=== PATIENT | male | born 1955 | race African-American/Black ===

== ENCOUNTER 2018-06-20 10:20 | Inpatient (IN) ==
[2018-06-20] MEDS ORDERED: LORazepam 1 MG Tablet PO ONE (11:26)
--- NOTE | 2018-06-20 11:37 | ED ---
HPI General Chief Complaint: Psychiatric Symptoms Stated Complaint: Psych eval / DBPD Time Seen by Provider: 06/20/18 17:30 Source: patient and police Mode of arrival: other Limitations: no limitations History of Present Illness HPI Narrative: 62-year-old male with a history of alcohol abuse and polysubstance abuse presents to the emergency department as a Case act for suicidal ideations. Upon my questioning, he admits to homicidal ideations as well but does not wish to go into detail. He states that he is a [place] [employer] and has PTSD. He cannot tell me why his symptoms were exacerbated. He does admit to using cocaine and marijuana yesterday and drinking 4 beers this morning. He says that he was given medication here at [facility] but does not take this medication since he was discharged last month. He cannot tell me what medication this was. He has no other complaints today. He denies any other chronic medical problems except for allergic rhinitis. MD complaint: Reports suicidal ideation and feels depressed Onset (ago): month(s) (4-5) Duration: intermittent History of same: Yes Relieving factors: none Exacerbating factors: alcohol and drug use Context: Reports recent alcohol abuse, recent drug abuse and not taking psychiatric medications; Denies significant life stressor Associated psychiatric symptoms: Reports depression, suicidal ideation and homicidal ideation; Denies auditory hallucinations and visual hallucinations Associated symptoms: Reports denies other symptoms Treatments prior to arrival: Reports none If self harm: admits thoughts of self harm Related Data Previous Rx's Medication Instructions Recorded hydroxyzine HCl 50 mg PO Q8H PRN #30 tab 06/10/18 quetiapine 200 mg PO DAILY 30 Days #30 tab 06/10/18 quetiapine 400 mg PO HS 30 Days #60 tab 06/10/18 sertraline [Zoloft] 100 mg PO DAILY 30 Days #30 tab 06/10/18 Allergies Allergy/AdvReac Type Severity Reaction Status Date / Time naproxen Allergy Severe Itching Verified 06/03/18 21:06 Review of Systems ROS: all other systems reviewed are negative [facility] Medical History Medical History PTSD (post-traumatic stress disorder) (Acute) Herniated cervical disc (Acute) Herniated lumbar intervertebral disc (Acute) Social History Social History Substance History: Active Abuse Second Hand Smoke Exposure: Yes Smoking Status: Current every day smoker Tobacco Type: Cigarettes How Often Do You Have a Drink Containing Alcohol: Monthly or less Recent Travel in [place] within the Last 8 Weeks: No Recent Out of Country Travel within the Last 8 Weeks: No Substance Abuse Detail Crack/Cocaine: Substance Use Status: Active Route Used Substance Abuse: Inhalation Reason for Use: Calm Down Immunization History Tetanus Immunization: >5 Years Exam Narrative Exam Narrative: GENERAL: WD, WN in NAD SKIN: Focused skin assessment warm/dry. HEAD: Atraumatic. Normocephalic. EYES: Pupils equal and round. No scleral icterus. No injection or drainage. ENT: No nasal bleeding or discharge. Mucous membranes pink and moist. No tonsillar hypertrophy or exudate. NECK: Trachea midline. No JVD. No meningismus. No midline tenderness. CARDIOVASCULAR: Regular rate and rhythm. No murmur appreciated. RESPIRATORY: No accessory muscle use. Clear to auscultation. Breath sounds equal bilaterally. GASTROINTESTINAL: Abdomen soft, non-tender, nondistended. No CVAT. MUSCULOSKELETAL: No obvious deformities. No clubbing. No cyanosis. No edema. No tenderness to palpation of the calves. Sensation intact to bilateral lower extremities. NEUROLOGICAL: Awake and alert. No obvious cranial nerve deficits. Motor grossly within normal limits. Normal speech. Psych Appearance: grossly normal Mental Status: mental status grossly normal Speech and Movement: slowed movement Mood: anxious mood and irritable mood Affect: blunted Attitude: cooperative Thought Process: circumstantial Thought Content: homicidality and suicidality Judgment: limited Course Initial Documented Vital Signs Temperature 97.8 F 06/20/18 10:55 Pulse Rate 82 06/20/18 10:55 Respiratory Rate 17 06/20/18 10:55 Blood Pressure 157/81 H 06/20/18 10:55 Pulse Oximetry 100 06/20/18 10:55 Last Documented Vital Signs Temperature 98.2 F 06/21/18 05:47 Pulse Rate 75 06/21/18 05:47 Respiratory Rate 16 06/21/18 05:47 Blood Pressure 147/82 H 06/21/18 05:47 Pulse Oximetry 92 L 06/21/18 05:47 Medical Decision Making MDM Narrative Medical decision making narrative: 62-year-old male presents to the emergency department for evaluation under Case act for suicidal ideations. He admits to drinking 4 beers today and using marijuana and cocaine yesterday. He says that he was discharged with medication at his last visit here at [facility] but does not recall what medication this was. He reports feeling very anxious at this time. Vital signs are stable. Labs ordered for evaluation. He appears well and polite. He does appear anxious. I offer this patient Ativan to help him calm and allow him to sleep as he does admit to significant insomnia as well. Labs appear stable. Consistent with patient's history of cocaine use and recent alcohol use this morning. He is medically to see psych. Medical Screen Exam Complete: Yes Emergency Medical Condition: Yes Differential Diagnosis Differential Diagnosis: Medical clearance for psych evaluation, psychosis, depression, malingering, substance abuse, substance induced mood disorder, anxiety, adjustment disorder, intoxication, anxiety, suicidal ideations Lab Data Result diagrams: 06/20/18 11:00 06/20/18 11:00 Lab Results 06/20/18 06/20/18 06/20/18 Range/Units 11:00 11:00 11:00 WBC 10.2 (4.0-11.0) th/mm3 RBC 4.81 (4.50-5.90) mil/mm3 Hgb 13.9 (13.0-17.0) gm/dL Hct 40.1 (39.0-51.0) % MCV 83.4 (80.0-100.0) fL MCH 28.9 (27.0-34.0) pg MCHC 34.6 (32.0-36.0) % RDW 14.6 (11.6-17.2) % Plt Count 257 (150-450) th/mm3 MPV 8.3 (7.0-11.0) fL Neut % (Auto) 69.5 (16.0-70.0) % Lymph % (Auto) 19.3 (9.0-44.0) % Graves % (Auto) 7.6 (0.0-8.0) % Eos % (Auto) 3.1 (0.0-4.0) % Baso % (Auto) 0.5 (0.0-2.0) % Neut # (Auto) 7.1 (1.8-7.7) th/mm3 Lymph # (Auto) 2.0 (1.0-4.8) th/mm3 Graves # (Auto) 0.8 (0.0-0.9) th/mm3 Eos # (Auto) 0.3 (0.0-0.4) th/mm3 Baso # (Auto) 0.1 (0.0-0.2) th/mm3 WBC Differential . Differential Comment Auto diff final Sodium 138 (136-145) meq/L Potassium 4.0 (3.5-5.1) meq/L Chloride 104 (98-107) meq/L Carbon Dioxide 23.8 (21.0-32.0) meq/L Anion Gap 10 (5-15) meq/L BUN 11 (7-18) mg/dL Creatinine 1.11 (0.60-1.30) mg/dL Estimated GFR 81 L (>89) mL/min Random Glucose 77 (74-106) mg/dL Calcium 9.1 (8.5-10.1) mg/dL Magnesium 2.3 (1.5-2.5) mg/dL Total Bilirubin 0.4 (0.2-1.0) mg/dL AST 25 (15-37) U/L ALT 27 (12-78) U/L Alkaline Phosphatase 109 (45-117) U/L Total Protein 8.2 (6.4-8.2) g/dL Albumin 3.9 (3.4-5.0) g/dL TSH 0.715 (0.358-3.740) uIU/mL Urine Opiates Screen Neg (Neg) Ur Barbiturates Screen Neg (Neg) Ur Amphetamines Screen Neg (Neg) U Benzodiazepines Scrn Neg (Neg) Urine Cocaine Screen Pos H (Neg) U Cannabinoids Screen Neg (Neg) Serum Alcohol 61 H (0-5) mg/dL Discharge Plan Discharge Disposition Patient Disposition: Sign Out(ED Internal Use Only) Discharge Condition Condition: Stable Discharge Order Discharge Orders: ED Use Only Admit Order (Routine); Ordered 06/20/18 Ordered By: Dheeraj Hernandez Discharge Details Diagnosis: Cocaine abuse, Alcohol abuse, Suicidal ideation Physicians Team ED Provider: Edin Rivas ED Midlevel Provider: Amy Schwarz Primary Care Provider: [facility],Physician 's Attending Provider: Kevin Spence Status ED Status: Left Department Discharge Information Discharge Date/Time: 06/20/18 20:45
[2018-06-20 12:24] LABS: Baso # (Auto) 0.1 th/mm3 (0.0-0.2); Baso % (Auto) 0.5 % (0.0-2.0); Eos # (Auto) 0.3 th/mm3 (0.0-0.4); Eos % (Auto) 3.1 % (0.0-4.0); Hematocrit 40.1 % (39.0-51.0); Hemoglobin 13.9 gm/dL (13.0-17.0); Lymph % (Auto) 19.3 % (9.0-44.0); Mean Corpuscular HGB Conc 34.6 % (32.0-36.0); Mean Corpuscular Hemoglobin 28.9 pg (27.0-34.0); Mean Corpuscular Volume 83.4 fL (80.0-100.0); Mean Platelet Volume 8.3 fL (7.0-11.0); Mono # (Auto) 0.8 th/mm3 (0.0-0.9); Mono % (Auto) 7.6 % (0.0-8.0); Neut # (Auto) 7.1 th/mm3 (1.8-7.7); Neut % (Auto) 69.5 % (16.0-70.0); Platelet Count 257 th/mm3 (150-450); Red Blood Count 4.81 mil/mm3 (4.50-5.90); Red Cell Distribution Width 14.6 % (11.6-17.2); White Blood Count 10.2 th/mm3 (4.0-11.0)
[2018-06-20 12:35] LABS: Amphetamine Screen,Urine Neg (Neg); Barbiturate Screen,Urine Neg (Neg); Cannabinoid Screen,Urine Neg (Neg); Cocaine Screen,Urine Pos (Neg)
[2018-06-20 12:48] LABS: Albumin 3.9 g/dL (3.4-5.0); Anion Gap 10 meq/L (5-15); Aspartate Aminotransferase 25 U/L (15-37); Blood Urea Nitrogen 11 mg/dL (7-18); Calcium 9.1 mg/dL (8.5-10.1); Carbon Dioxide 23.8 meq/L (21.0-32.0); Chloride 104 meq/L (98-107); Glomerular Filtration Rate 81 mL/min (>89); Glucose,Random 77 mg/dL (74-106); Magnesium 2.3 mg/dL (1.5-2.5); Sodium 138 meq/L (136-145)
[2018-06-20 12:49] LABS: Alanine Aminotransferase 27 U/L (12-78)
[2018-06-20 12:51] LABS: Opiate Screen,Urine Neg (Neg)
[2018-06-20 12:52] LABS: Alcohol 61 mg/dL (0-5)
[2018-06-20 12:59] LABS: Alkaline Phosphatase 109 U/L (45-117); Thyroid Stimulating Hormone 0.715 uIU/mL (0.358-3.740); Total Protein 8.2 g/dL (6.4-8.2)
[2018-06-20] MEDS ORDERED: Aluminum/Magnesium/Simethacone Susp 30 ML UDC PO PRN (18:46)
[2018-06-20] MEDS ORDERED: Sertraline 100 MG Tablet PO ONE (18:52)
--- NOTE | 2018-06-20 18:53 | ED ---
HPI - Psych - General Source: patient, police Mode of arrival: other Limitations: no limitations - History of Present Illness MD complaint: suicidal ideation, feels depressed Onset (ago): hour(s) Duration: intermittent Relieving factors: none Exacerbating factors: alcohol, drug use Context: recent alcohol abuse, recent drug abuse, not taking psychiatric medications Associated psychiatric symptoms: depression, suicidal ideation, auditory hallucinations Associated symptoms: denies other symptoms Treatments prior to arrival: none If self harm: admits thoughts of self harm - General Chief Complaint: Psychiatric Symptoms Stated Complaint: Psych eval / DBPD Time Seen by Provider: 06/20/18 17:30 - History of Present Illness HPI Narrative: Patient is a 62 years old -[place] male who is a [place] and is well-known to this to this ED and he was recently treated inpatient in May 2018. The patient was brought to this ED by law enforcement officers after patient reported suicidal thoughts and making threats to jump off a bridge or to shoot himself with a gun. The patient was assessed in his room and he appears anxious and depressed. Patient speech is fluent and rational unable to give a clear and accurate account of recent events leading up to him being Case acted by the police. He reported frequent traumatic flashback memories of the [place] War that triggers suicidal thoughts. He admits to be drinking alcohol, snorting cocaine and smoking marijuana frequently and that he stopped taking his psychotropic medication about 3 weeks ago. Patient admits to auditory hallucinations and he has a history of poor compliance with medications. She did not is unable to verify family support and he does not access resources for help at the [facility] recently. Patient denies chest pain abdominal pain or any other medical complaints. (Dheeraj Hernandez) - Related Data Previous Rx's Medication Instructions Recorded hydroxyzine HCl 50 mg PO Q8H PRN #30 tab 06/10/18 quetiapine 200 mg PO DAILY 30 Days #30 tab 06/10/18 quetiapine 400 mg PO HS 30 Days #60 tab 06/10/18 sertraline [Zoloft] 100 mg PO DAILY 30 Days #30 tab 06/10/18 Allergies Allergy/AdvReac Type Severity Reaction Status Date / Time naproxen Allergy Severe Itching Verified 06/03/18 21:06 PMF - History History Provided By: Patient - Medical History Medical History: Medical History (Last Updated 02/11/19 @ 11:22 by Claudia Pop PTSD (post-traumatic stress disorder) Herniated cervical disc Herniated lumbar intervertebral disc - Tobacco History Second Hand Smoke Exposure: Yes Tobacco Use In Past 30 Days: Yes Smoking Status: Current every day smoker Tobacco Type: Cigarettes - Alcohol History How Often Do You Have a Drink Containing Alcohol: Monthly or less - Substance Use History Substance History: Active Abuse - Substance Use Type Crack/Cocaine Status: Active Route Used: Inhalation Reason for Use: Calm Down - Travel History Recent Travel in the [place] Within the Last 8 Weeks: No Recent Travel Out of the Country Within the Last 8 Weeks: No - Immunization History Tetanus Immunization: >5 Years Psychiatric History - Psychiatric History Psychiatric Treatment History: History of Psychiatric Treatment, History of Hospitalization in a Psychiatric Facility, History of Community Mental Health Treatment History of Inpatient Treatment: Yes Firearms in Home: No - Psychiatric History Patient reported history of PTSD and depression dated as far back as 20 years and that he has been treated by the [facility] for these disorder over the years. Patient has been seen multiple times in this ED and he also was admitted to the inpatient units the last time was June 01, 2018 (Dheeraj Hernandez) Physical Exam - General Limitations: no limitations Mental Status Examination Consciousness: Alert, Vigilant, Highly distractible Orientation: x4 Motor Activity: Normal gait Speech: Unremarkable Language: Adequate Fund of Knowledge: Adequate Attention and Concentration: Adequate, Easily distracted Memory: Unremarkable Mood: Sad, Anxious, Irritable Affect: Irritable, Sad, Anxious Thought Process & Associations: Logical, Tangential Thought Content: Hallucinations, Racing thoughts Hallucination Type: Auditory Delusion Type: None Suicidal Ideation: Yes Suicidal Plan: Yes Suicidal Intention: No Homicidal Ideation: No Homicidal Plan: No Homicidal Intention: No Insight: Fair Judgment: Impulsive Initial Documented Vital Signs Temperature 97.8 F 06/20/18 10:55 Pulse Rate 82 06/20/18 10:55 Respiratory Rate 17 06/20/18 10:55 Blood Pressure 157/81 H 06/20/18 10:55 Pulse Oximetry 100 06/20/18 10:55 Last Documented Vital Signs Temperature 98.5 F 06/20/18 18:01 Pulse Rate 99 H 06/20/18 18:01 Respiratory Rate 18 06/20/18 18:01 Blood Pressure 127/74 06/20/18 18:01 Pulse Oximetry 99 06/20/18 18:01 MDM - Psych - Diagnosis (1) Cocaine abuse Code(s): F14.10 - Cocaine abuse, uncomplicated Status: Acute (2) Alcohol abuse Code(s): F10.10 - Alcohol abuse, uncomplicated Status: Acute (3) Suicidal ideation Code(s): R45.851 - Suicidal ideations Status: Acute - Lab Data Result diagrams: 06/20/18 11:00 06/20/18 11:00 - [facility] Narrative Medical decision making narrative: Patient continues to complain of flashback memories of the [place] War that taunts him continuously. He explained that the voices in his head is commanding him to do self-harm and that he is tired of living like that. Patient confirms frequent nightmares that prevents him from sleeping. Despite his frequent suicidal thoughts no self-harm gestures are present. No psychomotor agitation or behavioral disturbances displayed by the patient. No alcohol withdrawal symptoms are present. The patient is advocating inpatient stabilization of his psychotic and PTSD states. Patient denies chest pain or any somatic symptoms. He emphasized that he cannot trust himself with these suicidal thoughts and traumatic flashback memories. The plan is to continue the Case Act and admit patient to the 2700 unit for close observation and stabilization of his PTSD and psychotic symptoms. (Dheeraj Hernandez) - Lab Data Lab Results 06/20/18 06/20/18 06/20/18 Range/Units 11:00 11:00 11:00 WBC 10.2 (4.0-11.0) th/mm3 RBC 4.81 (4.50-5.90) mil/mm3 Hgb 13.9 (13.0-17.0) gm/dL Hct 40.1 (39.0-51.0) % MCV 83.4 (80.0-100.0) fL MCH 28.9 (27.0-34.0) pg MCHC 34.6 (32.0-36.0) % RDW 14.6 (11.6-17.2) % Plt Count 257 (150-450) th/mm3 MPV 8.3 (7.0-11.0) fL Neut % (Auto) 69.5 (16.0-70.0) % Lymph % (Auto) 19.3 (9.0-44.0) % [place]ett % (Auto) 7.6 (0.0-8.0) % Eos % (Auto) 3.1 (0.0-4.0) % Baso % (Auto) 0.5 (0.0-2.0) % Neut # (Auto) 7.1 (1.8-7.7) th/mm3 Lymph # (Auto) 2.0 (1.0-4.8) th/mm3 [place]ett # (Auto) 0.8 (0.0-0.9) th/mm3 Eos # (Auto) 0.3 (0.0-0.4) th/mm3 Baso # (Auto) 0.1 (0.0-0.2) th/mm3 WBC Differential . Differential Comment Auto diff final Sodium 138 (136-145) meq/L Potassium 4.0 (3.5-5.1) meq/L Chloride 104 (98-107) meq/L Carbon Dioxide 23.8 (21.0-32.0) meq/L Anion Gap 10 (5-15) meq/L BUN 11 (7-18) mg/dL Creatinine 1.11 (0.60-1.30) mg/dL Estimated GFR 81 L (>89) mL/min Random Glucose 77 (74-106) mg/dL Calcium 9.1 (8.5-10.1) mg/dL Magnesium 2.3 (1.5-2.5) mg/dL Total Bilirubin 0.4 (0.2-1.0) mg/dL AST 25 (15-37) U/L ALT 27 (12-78) U/L Alkaline Phosphatase 109 (45-117) U/L Total Protein 8.2 (6.4-8.2) g/dL Albumin 3.9 (3.4-5.0) g/dL TSH 0.715 (0.358-3.740) uIU/mL Urine Opiates Screen Neg (Neg) Ur Barbiturates Screen Neg (Neg) Ur Amphetamines Screen Neg (Neg) U Benzodiazepines Scrn Neg (Neg) Urine Cocaine Screen Pos H (Neg) U Cannabinoids Screen Neg (Neg) Serum Alcohol 61 H (0-5) mg/dL
--- NOTE | 2018-06-21 12:36 | P.HPPSY ---
Provisional Diagnosis Admission Date: June 20, 2018 18:43 Gilbert I.: Major depressive disorder recurrent severe with psychotic features Anxiety disorder unspecified Cocaine use disorder Alcohol use disorder Competence Certification of Person's Competence To Provide Express and Informed Consent I have personally examined Jin Sheriff JR, a person being served at [facility] on, June 21, 2018 1235. Express and informed consent means consent voluntarily given in writing, by a competent person, after sufficient explanation and disclosure of the subject matter involved to enable the person to make a knowing and willful decision without any element of force, fraud, deceit, duress, or other form of constraint or coercion. This person is 18 years of age or older, is not now known to be incompetent to consent to treatment with a guardian advocate, and does not have a health care surrogate or proxy currently making medical treatment decisions. I have found this person to be one of the following: [xxx] Competent to provide express and informed consent, as defined above, for voluntary admission to this facility and is competent to provide express and informed consent for treatment. He/she has the consistent capacity to make well reasoned, willful, and knowing decisions concerning his or her medical or mental health treatment. The person fully and consistently understands the purpose of the admission for examination/placement and is fully capable of personally exercising all rights assured under [place] Incompetent to provide express and informed consent to voluntary admission, and this is incompetent to provide express and informed consent to treatment. The person must be transferred to involuntary status and a petition for a guardian advocate filed with the Circuit Court. [] Refusing to provide express and informed consent to voluntary admission but is competent to provide express and informed consent for treatment. The person must be discharged or transferred to involuntary status. Form shall be completed within 24 hours of a person's arrival at the receiving facility and filed in the clinical record of each person: 1. Admitted on a voluntary basis 2. Permitted to provide express and informed consent to his/her own treatment 3. Allowed to transfer from involuntary to voluntary status 4. Prior to permitting a person to consent to his or her own treatment after having been previously found incompetent to consent to treatment. History of Present Illness Capacity: Has capacity Chief Complaint: Suicidal thoughts History of Present Illness: Patient is a 62 years old -Maldivian male and is well-known to this to this ED and he was recently treated inpatient in May 2018. The patient was brought to this ED by law enforcement officers after patient reported suicidal thoughts and making threats to jump off a bridge or to shoot himself with a gun. The patient was assessed in his room and he appears anxious and depressed. Patient speech is fluent and rational unable to give a clear and accurate account of recent events leading up to him being Case acted by the police. He reported frequent traumatic flashback memories of the [place] that triggers suicidal thoughts. He admits to be drinking alcohol, snorting cocaine and smoking marijuana frequently and that he stopped taking his psychotropic medication about 3 weeks ago. Patient admits to auditory hallucinations and he has a history of poor compliance with medications. The patient is advocating inpatient stabilization of his psychotic and PTSD states. Patient denies chest pain or any somatic symptoms. He emphasized that he cannot trust himself with these suicidal thoughts and traumatic flashback memories. Patient was seen at bedside on the psychiatric unit this morning where he was still asleep after waking up briefly for breakfast. The patient complains of fatigue and somnolence as well as severe depressive mood but denies active suicidal thoughts or plans at this time. He admits to nonadherence with discharge medications and discharge follow-up plans from previous admission and he attributes it to worsening flashbacks from combat trauma from [place]. The patient's date in 1955 would indicate that he is too young to have served in the [place] conflict but this inconsistency will be challenged at a later date. The patient's presentation of worsening depression fatigue and anhedonia and auditory hallucinations telling to hurt himself are most consistent with recurrence of his depression in the context of continued cocaine abuse. Patient had done well on previous inpatient treatments after discussion of risk benefits side effects alternatives he chooses to restart his previous psychotropics. Past psychiatric history: Past Diagnoses: The patient cannot recall past diagnoses Hospitalizations: Patient was discharged from [facility] on 10 June 2018. The patient reports he was hospitalized at [facility] 4 years ago after a suicide attempt. Suicidal behavior: Patient admits that he tried to stab himself 4 years ago and suicide attempt Past psychotropic medication trials: Patient can only recall treatment with Seroquel 100 mg at bedtime but reports that that dose was inadequate to help him sleep or to control his voices. During his admission last month the patient was restarted on Seroquel and the dose titrated up to 200 mg in the morning and 400 mg at bedtime with good effect. He was also started on Zoloft and titrate up to 100 mg a day for treatment of anxiety and depression. Outpatient MH treatment: Patient reports that he was followed by the [facility] outpatient clinic approximately 4 years ago but has not been back for 3 years. 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 Family psychiatric history: Denies Psychosocial history: Patient was born and raised locally and graduated high school but no college. He reports joining the [employer] after high school and served 3 years then got out with an honorable discharge. 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 Patient reports he was and x1 and has 4 children oldest being 30 years of age and the youngest being 3 years of age. His 3-year-old was with an ex-girlfriend who he has not been worse for the last 3 years and he has not seen his son since the son was 8 months old. Patient admits that he has been "hunting for them" but has not been able to find them. Patient reports that he has been homeless since his discharge earlier this month. Substance Use history: Tobacco use: Patient is a former smoker but none in the last few years Alcohol use: Patient denies regular alcohol use and none in the last few years Cannabis use: Denies Stimulant use: The patient denies regular use of cocaine but admits to using for the first time in over 8 months just days before his previous admission and now presents with a urine drug screen positive for cocaine again. Opiate use: Denies Prescription drug abuse: Denies - Inpatient Certification I certify that the inpatient services were ordered in accordance with Medicare regulations governing the order. This includes certification that hospital inpatient services are reasonable and necessary and in the case of services not specified as inpatient-only under 42 CFR 419.22(n), that they are appropriately provided as inpatient services in accordance to with the 2-midnight benchmark under 43 CFR 412.3(e) I certify that inpatient psychiatric hospital services are medically necessary. Evaluation and treatment and/or diagnostic testing are expected to improve the patient's condition. The patient needs on a daily basis, active treatment furnished directly by or requiring the supervision of inpatient psychiatric facility personnel. Estimated Total Length of Stay (Days): 7 Plans for Post Hospital Care: Home Review of Systems Ears, Nose, Mouth, and Throat: Reports nasal congestion Gastrointestinal: Reports heartburn PMFSH - History History Provided By: Patient - Medical History Medical History: Medical History (Last Updated 06/20/18 @ 11:22 by Claudia Rojas) PTSD (post-traumatic stress disorder) Herniated cervical disc Herniated lumbar intervertebral disc - Tobacco History Second Hand Smoke Exposure: Yes Tobacco Use In Past 30 Days: Yes Smoking Status: Current every day smoker Tobacco Type: Cigarettes - Alcohol History How Often Do You Have a Drink Containing Alcohol: Monthly or less - Substance Use History Substance History: Active Abuse - Substance Use Type Crack/Cocaine Status: Active Route Used: Inhalation Reason for Use: Calm Down - Travel History Recent Travel in the [place] Within the Last 8 Weeks: No Recent Travel Out of the Country Within the Last 8 Weeks: No - Immunization History Tetanus Immunization: >5 Years Hx Influenza Vaccine This Season: No Medications and Allergies Active Medications: Active Medications Al Hydrox/Mg Hydrox/Simethicone (Mag-Al Plus Susp Liq) 30 ml PO Q6H PRN PRN Reason: DYSPEPSIA Famotidine (Pepcid) 20 mg PO BID EMMA Fluticasone Propionate (Flonase Nasal [place]) 1 spray NASAL BID EMMA Hydroxyzine HCl (Atarax) 50 mg PO Q8H PRN PRN Reason: ANXIETY Lactulose (Lactulose Liq) 30 ml PO DAILY PRN PRN Reason: SEVERE CONSITIPATION Quetiapine Fumarate (Seroquel) 400 mg PO HS EMMA Quetiapine Fumarate (Seroquel) 200 mg PO DAILY EMMA Sertraline HCl (Zoloft) 100 mg PO DAILY EMMA Allergies Allergy/AdvReac Type Severity Reaction Status Date / Time naproxen Allergy Severe Itching Verified 06/03/18 21:06 Results - Labs CBC & Chem 7: 06/20/18 11:00 06/20/18 11:00 Labs: Laboratory Results - last 24 hr 06/20/18 06/20/18 11:00 11:00 Sodium 138 Potassium 4.0 Chloride 104 Carbon Dioxide 23.8 Anion Gap 10 BUN 11 Creatinine 1.11 Estimated GFR 81 L Random Glucose 77 Calcium 9.1 Magnesium 2.3 Total Bilirubin 0.4 AST 25 ALT 27 Alkaline Phosphatase 109 Total Protein 8.2 Albumin 3.9 TSH 0.715 Urine Opiates Screen Neg Ur Barbiturates Screen Neg Ur Amphetamines Screen Neg U Benzodiazepines Scrn Neg Urine Cocaine Screen Pos H U Cannabinoids Screen Neg Serum Alcohol 61 H Exam Vital signs: Vital Signs 06/20/18 12:49 06/20/18 18:01 06/20/18 21:22 Temperature 98.2 F 98.5 F 97.8 F Pulse Rate 89 99 H 95 H Respiratory Rate 18 18 18 Blood Pressure 152/81 H 127/74 174/81 H Pulse Oximetry 97 99 93 L 06/21/18 05:47 Temperature 98.2 F Pulse Rate 75 Respiratory Rate 16 Blood Pressure 147/82 H Pulse Oximetry 92 L Intake & Output 06/20/18 06/21/18 06/21/18 18:59 06:59 18:59 Weight 114.305 kg 79.9 kg Other: Weight On Admission 79.9 kg Mental Status Examination Appearance: Appropriate Consciousness: Alert, Somnolent Orientation: x4 Motor Activity: Normal gait Speech: Unremarkable Language: Adequate Fund of Knowledge: Adequate Attention and Concentration: Easily distracted Memory: Unremarkable Mood: Sad, Anxious Affect: Sad, Anxious Thought Process & Associations: Intact, Logical, Goal directed Thought Content: Appropriate Hallucination Type: Auditory (None elicited today but he complained of command hallucinations on admission to the ER) Delusion Type: None Suicidal Ideation: Yes (Passive) Suicidal Intention: No Homicidal Ideation: No Homicidal Plan: No Homicidal Intention: No Insight: Fair Judgment: Impulsive Assessment and Plan - Assessment (1) Major depressive disorder, recurrent, severe with psychotic features Code(s): F33.3 - Major depressive disorder, recurrent, severe with psychotic symptoms Status: Acute (2) Cocaine abuse Code(s): F14.10 - Cocaine abuse, uncomplicated Status: Acute (3) Alcohol abuse Code(s): F10.10 - Alcohol abuse, uncomplicated Status: Suspected (4) Suicidal ideation Code(s): R45.851 - Suicidal ideations Status: Acute - Plan Plan: 1. Continue with admission to inpatient psychiatry at [facility]; convert to voluntary/competent legal status. 2. Routine unit precautions. 3. Comfort medications ordered for as needed treatment of constipation, heartburn, diarrhea, and mild pain. 4. Hydroxyzine 50mg po q6H prn anxiety/insomnia. 5. Restart Seroquel 200 mg every morning and 400 mg at bedtime. 6. Restart Zoloft 100 mg every morning for treatment of anxiety and depression. 7. Restart Flonase 1 puff per nares twice a day. 8. Start famotidine 20 mg twice a day for reflux. 8. Patient will participate in the unit programming to include group therapies , milieu therapy and recreational therapies. 9. Discharge planning: The patient has access to [place] outpatient as well as inpatient treatments but he has thus far been nonadherent and when approached about the possibility of residential substance use treatment with the [place] he is currently reporting very little motivation. Patient is homeless which places him at continued risk of relapse on cocaine use therefore efforts will be made by his treatment team to get him into a prison as well as substance use recovery treatment. Estimated LOS: 7 days Justification for Continued Inpatient Stay: The patient is a 62-year-old who presents complaining of worsening depression with auditory hallucinations that are commanding him to harm himself. He had just been discharged approximately 12 days prior to this admission but he admits to nonadherence with the discharge medications or discharge treatment plan. He reports severe psychosocial stressors from continued homelessness as well as exacerbations of flashbacks of PTSD triggered a return of suicidal ideations with plan to jump from a bridge. Patient's mental status and mood were likely also affected by his continued cocaine abuse but the patient minimizes this habit and at this time he is declining recommendation for residential treatment for cocaine abuse. The patient's complaints of PTSD from combat in [place] is inconsistent with historical facts and the patient's age but it is possible that he does suffer from PTSD from another traumatic source therefore we will not confront or invalidate his suffering at this time but rather, provide treatments that will benefit his mood and anxiety and psychosis.
[2018-06-21] MEDS: Famotidine 20 MG Tablet PO SCH (21:38)
[2018-06-22] MEDS: Famotidine 20 MG Tablet PO SCH ×2 (08:56→20:39)
[2018-06-22] MEDS: Sertraline 100 MG Tablet PO SCH (08:56)
--- NOTE | 2018-06-22 12:54 | P.PNPSY ---
Subjective Chief Complaint: Suicidal thoughts Remarks: Patient seen for follow-up, chart reviewed, patient discussed with nursing staff ; we reviewed the patient's mood, thoughts, and behaviors from overnight and this morning. Nurse reports that patient slept approximately 8 hours overnight and he has been cooperative and pleasant with staff. The patient did complain of continued somnolence and would like to spend more time in bed but with encouragement from nursing he agreed to join the milieu and attend groups today. Patient was seen sitting quietly in the day room after breakfast. He complains of anxiety and paranoia triggered by sitting in the day room with other patients and he agrees to alert staff if it becomes overwhelming. Patient reports that he continues to have intermittent thoughts of suicide and he is fearful that if he was discharged at this time that he would follow through with those thoughts. He reports continued auditory hallucinations telling him that he should kill himself but denies any command hallucinations to harm others and he feels in control of those command hallucinations to harm himself and will alert staff if the intensity worsens. Review of Systems Musculoskeletal: Reports back pain Mental Status Examination Appearance: Appropriate Consciousness: Alert Orientation: x4 Motor Activity: Normal gait Speech: Unremarkable Language: Adequate Fund of Knowledge: Adequate Attention and Concentration: Easily distracted Memory: Unremarkable Mood: Sad, Anxious Affect: Sad, Anxious Thought Process & Associations: Intact, Logical, Goal directed Thought Content: Appropriate Hallucination Type: Auditory (None elicited today but he complained of command hallucinations on admission to the ER) Delusion Type: None Suicidal Ideation: Yes (Passive) Suicidal Plan: No Suicidal Intention: No Homicidal Ideation: No Homicidal Plan: No Homicidal Intention: No Insight: Fair Judgment: Impulsive Assessment and Plan - Assessment (1) Major depressive disorder, recurrent, severe with psychotic features Code(s): F33.3 - Major depressive disorder, recurrent, severe with psychotic symptoms Status: Acute (2) Cocaine abuse Code(s): F14.10 - Cocaine abuse, uncomplicated Status: Acute (3) Alcohol abuse Code(s): F10.10 - Alcohol abuse, uncomplicated Status: Suspected (4) Suicidal ideation Code(s): R45.851 - Suicidal ideations Status: Acute - Plan Plan: June 21, 2018. Initial assessment and plan: The patient is a 62-year-old who presents complaining of worsening depression with auditory hallucinations that are commanding him to harm himself. He had just been discharged approximately 12 days prior to this admission but he admits to nonadherence with the discharge medications or discharge treatment plan. He reports severe psychosocial stressors from continued homelessness as well as exacerbations of flashbacks of PTSD triggered a return of suicidal ideations with plan to jump from a bridge. Patient's mental status and mood were likely also affected by his continued cocaine abuse but the patient minimizes this habit and at this time he is declining recommendation for residential treatment for cocaine abuse. The patient's complaints of PTSD from combat in [place] is inconsistent with historical facts and the patient's age but it is possible that he does suffer from PTSD from another traumatic source therefore we will not confront or invalidate his suffering at this time but rather, provide treatments that will benefit his mood and anxiety and psychosis. 1. Continue with admission to inpatient psychiatry at [facility]; convert to voluntary/competent legal status. 2. Routine unit precautions. 3. Comfort medications ordered for as needed treatment of constipation, heartburn, diarrhea, and mild pain. 4. Hydroxyzine 50mg po q6H prn anxiety/insomnia. 5. Restart Seroquel 200 mg every morning and 400 mg at bedtime. 6. Restart Zoloft 100 mg every morning for treatment of anxiety and depression. 7. Restart Flonase 1 puff per nares twice a day. 8. Start famotidine 20 mg twice a day for reflux. 8. Patient will participate in the unit programming to include group therapies , milieu therapy and recreational therapies. 9. Discharge planning: The patient has access to [place] outpatient as well as inpatient treatments but he has thus far been nonadherent and when approached about the possibility of residential substance use treatment with the [place] he is currently reporting very little motivation. Patient is homeless which places him at continued risk of relapse on cocaine use therefore efforts will be made by his treatment team to get him into a custodial as well as substance use recovery treatment. Estimated LOS: 7 days June 22, 2018: Fair initial response to treatment, the patient reports feeling safe on the unit and is cooperative with care but he continues to experience command hallucinations with thoughts of harming himself. Continue inpatient psychiatric treatment and stabilization, voluntary status. Continue current medications unchanged as he will require more time on these medications in order to reach a therapeutic response. Discharge planning: The patient's homelessness is a prominent risk factor for his suicidal thoughts and behaviors and will need to be mitigated prior to discharge. Patient does have veterans benefits and the treatment team will try to access care and case management through the [facility] if possible. Justification for Continued Inpatient Stay: Patient remains an elevated risk for self-harm by acting out on his command hallucinations and will require further inpatient stabilization and preparation of a safe discharge plan. Moving patient to a less restrictive environment at this time may result in decompensation.
[2018-06-23] MEDS: Sertraline 100 MG Tablet PO SCH (08:19)
[2018-06-23] MEDS: Famotidine 20 MG Tablet PO SCH ×2 (08:19→21:31)
--- NOTE | 2018-06-23 13:23 | P.PNPSY ---
Subjective Chief Complaint: Suicidal thoughts Remarks: Patient seen for follow-up, chart reviewed, patient discussed with nursing staff ; we reviewed the patient's mood, thoughts, and behaviors from overnight and this morning. Nurse reports the patient slept 8 hours overnight and reported feeling better but continues to complain of fatigue. He has been out of the milieu interacting appropriately with staff and peers. Patient met with unit aids social worker and expressed appreciation for her assistance in getting him back into the [facility] program. The patient reports that his auditory hallucinations have decreased in intensity and frequency but he did hear some this morning. He is denying active suicidal ideations but has had intermittent thoughts throughout the day. He expressed satisfaction with the current medication and denies physical discomfort. Mental Status Examination Appearance: Appropriate Consciousness: Alert Orientation: x4 Motor Activity: Normal gait Speech: Unremarkable Language: Adequate Fund of Knowledge: Adequate Attention and Concentration: Easily distracted Memory: Unremarkable Mood: Sad, Anxious Affect: Sad, Anxious Thought Process & Associations: Intact, Logical, Goal directed Thought Content: Appropriate Hallucination Type: Auditory (None elicited today but he complained of command hallucinations on admission to the ER) Delusion Type: None Suicidal Ideation: Yes (Passive) Suicidal Plan: No Suicidal Intention: No Homicidal Ideation: No Homicidal Plan: No Homicidal Intention: No Insight: Fair Judgment: Impulsive Assessment and Plan - Assessment (1) Major depressive disorder, recurrent, severe with psychotic features Code(s): F33.3 - Major depressive disorder, recurrent, severe with psychotic symptoms Status: Acute (2) Cocaine abuse Code(s): F14.10 - Cocaine abuse, uncomplicated Status: Acute (3) Alcohol abuse Code(s): F10.10 - Alcohol abuse, uncomplicated Status: Suspected (4) Suicidal ideation Code(s): R45.851 - Suicidal ideations Status: Acute - Plan Plan: June 21, 2018. Initial assessment and plan: The patient is a 62-year-old who presents complaining of worsening depression with auditory hallucinations that are commanding him to harm himself. He had just been discharged approximately 12 days prior to this admission but he admits to nonadherence with the discharge medications or discharge treatment plan. He reports severe psychosocial stressors from continued homelessness as well as exacerbations of flashbacks of PTSD triggered a return of suicidal ideations with plan to jump from a bridge. Patient's mental status and mood were likely also affected by his continued cocaine abuse but the patient minimizes this habit and at this time he is declining recommendation for residential treatment for cocaine abuse. The patient's complaints of PTSD from combat in [place] is inconsistent with historical facts and the patient's age but it is possible that he does suffer from PTSD from another traumatic source therefore we will not confront or invalidate his suffering at this time but rather, provide treatments that will benefit his mood and anxiety and psychosis. 1. Continue with admission to inpatient psychiatry at [facility]; convert to voluntary/competent legal status. 2. Routine unit precautions. 3. Comfort medications ordered for as needed treatment of constipation, heartburn, diarrhea, and mild pain. 4. Hydroxyzine 50mg po q6H prn anxiety/insomnia. 5. Restart Seroquel 200 mg every morning and 400 mg at bedtime. 6. Restart Zoloft 100 mg every morning for treatment of anxiety and depression. 7. Restart Flonase 1 puff per nares twice a day. 8. Start famotidine 20 mg twice a day for reflux. 8. Patient will participate in the unit programming to include group therapies , milieu therapy and recreational therapies. 9. Discharge planning: The patient has access to [place] outpatient as well as inpatient treatments but he has thus far been nonadherent and when approached about the possibility of residential substance use treatment with the [facility] he is currently reporting very little motivation. Patient is homeless which places him at continued risk of relapse on cocaine use therefore efforts will be made by his treatment team to get him into a prison as well as substance use recovery treatment. Estimated LOS: 7 days June 22, 2018: Fair initial response to treatment, the patient reports feeling safe on the unit and is cooperative with care but he continues to experience command hallucinations with thoughts of harming himself. Continue inpatient psychiatric treatment and stabilization, voluntary status. Continue current medications unchanged as he will require more time on these medications in order to reach a therapeutic response. Discharge planning: The patient's homelessness is a prominent risk factor for his suicidal thoughts and behaviors and will need to be mitigated prior to discharge. Patient does have veterans benefits and the treatment team will try to access care and case management through the [facility] if possible. June 23, 2018: Fair response to treatment, the patient is calm and cooperative and has been able to tolerate being out of his room and interacting with his peers. He is reporting a decreased intensity and frequency of his command hallucinations to harm himself. He is expressing sincere motivation to work on his recovery and adhere to discharge follow-up plans. Continue inpatient psychiatric treatment and stabilization, voluntary status. Continue current medications unchanged as he will require more time on these medications in order to reach a therapeutic response. Discharge planning: The patient is to follow-up early in the morning with the [facility]at to[facility] aids social worker at the [place] outpatient clinic where he will be re-linked with the [facility] program. Anticipate discharge early next week. Justification for Continued Inpatient Stay: Patient remains an elevated risk for self-harm by acting out on command hallucinations to harm himself and will require further inpatient stabilization and preparation of a safe discharge plan. Moving patient to a less restrictive environment at this time may result in decompensation.
[2018-06-24] MEDS: Sertraline 100 MG Tablet PO SCH (08:04)
[2018-06-24] MEDS: Famotidine 20 MG Tablet PO SCH ×2 (08:04→21:15)
[2018-06-24] MEDS: Methocarbamol 500 MG Tablet PO PRN (11:48)
--- NOTE | 2018-06-24 12:30 | P.PNPSY ---
Subjective Chief Complaint: Suicidal thoughts Remarks: Patient seen for follow-up, chart reviewed, patient discussed with nursing staff ; we reviewed the patient's mood, thoughts, and behaviors from overnight and this morning. Nurse reports the patient was anxious and agitated at night and response to stressors on the unit. Patient reportedly demonstrated fair frustration tolerance and responded to treatments with Atarax and Ativan. Patient only slept 4 hours overnight. Patient was seen sitting in the day room after breakfast. He complains of continued puffiness around his maxillary sinuses and now experiencing a bloody nose. He also complains of neck and shoulder soreness with muscle spasms. He reports continued auditory hallucinations but decreased in intensity this morning. He admits to passive suicidal ideations but no plan or intent. He denies any active homicidal ideations and he agrees to inform the nurses if he has thoughts of harming other patients. Mental Status Examination Appearance: Appropriate Consciousness: Alert Orientation: x4 Motor Activity: Normal gait Speech: Unremarkable Language: Adequate Fund of Knowledge: Adequate Attention and Concentration: Easily distracted Memory: Unremarkable Mood: Sad, Anxious, Irritable Affect: Sad, Anxious Thought Process & Associations: Intact, Logical, Goal directed Thought Content: Appropriate Hallucination Type: Auditory (None elicited today but he complained of command hallucinations on admission to the ER) Delusion Type: None Suicidal Ideation: Yes (Passive) Suicidal Plan: No Suicidal Intention: No Homicidal Ideation: No Homicidal Plan: No Homicidal Intention: No Insight: Fair Judgment: Impulsive Assessment and Plan - Assessment (1) Major depressive disorder, recurrent, severe with psychotic features Code(s): F33.3 - Major depressive disorder, recurrent, severe with psychotic symptoms Status: Acute (2) Cocaine abuse Code(s): F14.10 - Cocaine abuse, uncomplicated Status: Acute (3) Alcohol abuse Code(s): F10.10 - Alcohol abuse, uncomplicated Status: Suspected (4) Suicidal ideation Code(s): R45.851 - Suicidal ideations Status: Acute - Plan Plan: June 21, 2018. Initial assessment and plan: The patient is a 62-year-old who presents complaining of worsening depression with auditory hallucinations that are commanding him to harm himself. He had just been discharged approximately 12 days prior to this admission but he admits to nonadherence with the discharge medications or discharge treatment plan. He reports severe psychosocial stressors from continued homelessness as well as exacerbations of flashbacks of PTSD triggered a return of suicidal ideations with plan to jump from a bridge. Patient's mental status and mood were likely also affected by his continued cocaine abuse but the patient minimizes this habit and at this time he is declining recommendation for residential treatment for cocaine abuse. The patient's complaints of PTSD from combat in [place] is inconsistent with historical facts and the patient's age but it is possible that he does suffer from PTSD from another traumatic source therefore we will not confront or invalidate his suffering at this time but rather, provide treatments that will benefit his mood and anxiety and psychosis. 1. Continue with admission to inpatient psychiatry at [facility]; convert to voluntary/competent legal status. 2. Routine unit precautions. 3. Comfort medications ordered for as needed treatment of constipation, heartburn, diarrhea, and mild pain. 4. Hydroxyzine 50mg po q6H prn anxiety/insomnia. 5. Restart Seroquel 200 mg every morning and 400 mg at bedtime. 6. Restart Zoloft 100 mg every morning for treatment of anxiety and depression. 7. Restart Flonase 1 puff per nares twice a day. 8. Start famotidine 20 mg twice a day for reflux. 8. Patient will participate in the unit programming to include group therapies , milieu therapy and recreational therapies. 9. Discharge planning: The patient has access to [facility] outpatient as well as inpatient treatments but he has thus far been nonadherent and when approached about the possibility of residential substance use treatment with the [facility] he is currently reporting very little motivation. Patient is homeless which places him at continued risk of relapse on cocaine use therefore efforts will be made by his treatment team to get him into a [facility] as well as substance use recovery treatment. Estimated LOS: 7 days June 22, 2018: Fair initial response to treatment, the patient reports feeling safe on the unit and is cooperative with care but he continues to experience command hallucinations with thoughts of harming himself. Continue inpatient psychiatric treatment and stabilization, voluntary status. Continue current medications unchanged as he will require more time on these medications in order to reach a therapeutic response. Discharge planning: The patient's homelessness is a prominent risk factor for his suicidal thoughts and behaviors and will need to be mitigated prior to discharge. Patient does have veterans benefits and the treatment team will try to access care and case management through the [facility] if possible. June 23, 2018: Fair response to treatment, the patient is calm and cooperative and has been able to tolerate being out of his room and interacting with his peers. He is reporting a decreased intensity and frequency of his command hallucinations to harm himself. He is expressing sincere motivation to work on his recovery and adhere to discharge follow-up plans. Continue inpatient psychiatric treatment and stabilization, voluntary status. Continue current medications unchanged as he will require more time on these medications in order to reach a therapeutic response. Discharge planning: The patient is to follow-up early in the morning with the Rafat tovar rn social work at the [place] outpatient clinic where he will be re-linked with the [facility] program. Anticipate discharge early next week. June 24, 2018: Fair response to treatment as the patient is reporting decreased intensity of his auditory hallucinations and decreased intensity of his suicidal ideations. The patient has recently experienced worsening anxiety and agitation and irritability in response to stressors within the milieu but thus far has responded appropriately. The patient does not feel safe with discharge at this time but is motivated for his long-term recovery and would like to continue his inpatient stabilization. Continue inpatient psychiatric treatment and stabilization, voluntary status. Increase hydroxyzine to 100 mg every 6 hours as needed for anxiety or insomnia. Continue all other medications unchanged allowing for more time to reach therapeutic efficacy. Consult hospitalist due to the patient's continued complaints of sinus irritation and now with epistaxis. Start Robaxin 1000 mg every 8 hours as needed for complaints of muscle spasm pain in the neck and shoulders. Discharge planning: The patient is to follow-up early in the morning with the Rafat tovar rn social work at the [place] outpatient clinic where he will be re-linked with the [facility] program. Anticipate discharge early next week. Justification for Continued Inpatient Stay: Patient remains an elevated risk for self-harm by nonadherence and relapse on drugs resulting in worsening mood and paranoia with suicidal and homicidal ideations and will require further inpatient stabilization and preparation of a safe discharge plan. Moving patient to a less restrictive environment at this time may result in decompensation.
[2018-06-24] MEDS: LORazepam 1 MG Tablet PO PRN ×2 (13:24→21:21)
[2018-06-24 14:44] LABS: Baso % (Auto) 0.3 % (0.0-2.0); Eos # (Auto) 0.6 th/mm3 (0.0-0.4); Eos % (Auto) 6.9 % (0.0-4.0); Hematocrit 38.5 % (39.0-51.0); Hemoglobin 13.4 gm/dL (13.0-17.0); Lymph % (Auto) 24.6 % (9.0-44.0); Mean Corpuscular HGB Conc 34.8 % (32.0-36.0); Mean Corpuscular Hemoglobin 29.8 pg (27.0-34.0); Mean Corpuscular Volume 85.7 fL (80.0-100.0); Mean Platelet Volume 8.2 fL (7.0-11.0); Mono # (Auto) 0.9 th/mm3 (0.0-0.9); Mono % (Auto) 10.7 % (0.0-8.0); Neut # (Auto) 4.8 th/mm3 (1.8-7.7); Neut % (Auto) 57.5 % (16.0-70.0); Platelet Count 202 th/mm3 (150-450); Red Blood Count 4.49 mil/mm3 (4.50-5.90); Red Cell Distribution Width 15.2 % (11.6-17.2); White Blood Count 8.3 th/mm3 (4.0-11.0)
--- NOTE | 2018-06-24 17:57 | P.CONIM ---
History of Present Illness Service: Hospitalist Consult date: 06/24/18 Requesting Physician: Kevin Spence Reason for Consult: Assist with medical management Primary Care Provider: [facility] History of Present Illness: This is a 62-year-old male with a past medical history significant for chronic allergies and sinusitis, history of cocaine and alcohol abuse, PTSD, major depressive disorder and anxiety disorder who was recently treated as inpatient last month in the psych unit who was brought to [facility] ED by law enforcement under Case act after patient reported suicidal thoughts and made threats to jump off a bridge or shoot himself on. Patient has since been admitted to inpatient psychiatric unit and hospitalist services have been consulted to assist with ongoing medical management. Patient seen and examined. Patient complains of worsening nasal congestion with near daily spray ii painter red tinged mucus after blowing his nose for the past few days. Patient states that this has occurred intermittently for years. Patient states he has been on Claritin and Flonase for a very long time without any benefit. He states he has a history of snorting cocaine but has not done so in 40 years however patient's urine drug screen was positive for cocaine this admission and during May's admission. Patient denies any fever or chills. He denies any facial tenderness. Patient also has complaints of chronic right sided neck pain with radiation into the right upper extremity with associated weakness and intermittent numbness and tingling. He says he was told previously he has bad disc in his neck. Review of Systems Review of Systems: all other systems reviewed are negative PMFSH Medical History Medical History PTSD (post-traumatic stress disorder) (Acute) Herniated cervical disc (Acute) Herniated lumbar intervertebral disc (Acute) Surgical History Surgical History No history of previous surgery (Acute) Family History Family History Mother Multiple environmental allergies Social History Social History Substance History: Active Abuse Second Hand Smoke Exposure: Yes Smoking Status: Current every day smoker Tobacco Type: Cigarettes How Often Do You Have a Drink Containing Alcohol: Monthly or less Recent Travel in [facility] within the Last 8 Weeks: No Recent Out of Country Travel within the Last 8 Weeks: No Substance Abuse Detail Crack/Cocaine: Substance Use Status: Active Route Used Substance Abuse: Inhalation Reason for Use: Calm Down Immunization History Tetanus Immunization: >5 Years Hx Influenza Vaccine This Season: No Medications and Allergies Allergies Allergy/AdvReac Type Severity Reaction Status Date / Time naproxen Allergy Severe Itching Verified 06/03/18 21:06 Active Medications: Active Medications Al Hydrox/Mg Hydrox/Simethicone (Mag-Al Plus Susp Liq) 30 ml PO Q6H PRN PRN Reason: DYSPEPSIA Last Admin: 06/23/18 09:41 Dose: 30 ml Famotidine (Pepcid) 20 mg PO BID [facility] Last Admin: 06/24/18 08:04 Dose: 20 mg Fluticasone Propionate (Flonase Nasal Rumely) 1 spray NASAL BID [facility] Last Admin: 06/24/18 08:04 Dose: 1 spray Hydroxyzine HCl (Atarax) 100 mg PO Q6H PRN PRN Reason: anxiety or insomnia Last Admin: 06/24/18 11:33 Dose: 100 mg Ibuprofen (Motrin) 800 mg PO Q6H PRN PRN Reason: Acute Pain Last Admin: 06/24/18 15:04 Dose: 800 mg Lactulose (Lactulose Liq) 30 ml PO DAILY PRN PRN Reason: SEVERE CONSITIPATION Lorazepam (Ativan) 1 mg PO Q8H PRN PRN Reason: SEVERE ANXIETY OR AGITATION Last Admin: 06/24/18 13:24 Dose: 1 mg Methocarbamol (Robaxin) 1,000 mg PO Q8HR PRN PRN Reason: MUSCLE PAIN Last Admin: 06/24/18 11:48 Dose: 1,000 mg Padimate O (Chapstick) 1 applicatio TOPICAL UNSCH PRN PRN Reason: for dry lips Last Admin: 06/24/18 11:33 Dose: 1 applicatio Quetiapine Fumarate (Seroquel) 400 mg PO HS [facility] Last Admin: 06/23/18 21:31 Dose: 400 mg Quetiapine Fumarate (Seroquel) 200 mg PO DAILY [facility] Last Admin: 06/24/18 08:04 Dose: 200 mg Sertraline HCl (Zoloft) 100 mg PO DAILY [facility] Last Admin: 06/24/18 08:04 Dose: 100 mg Physical Exam Vital signs: Vital Signs 06/24/18 05:57 Temperature 97.8 F Pulse Rate 80 Respiratory Rate 17 Blood Pressure 117/55 L Pulse Oximetry 96 Intake & Output 06/23/18 06/24/18 06/24/18 18:59 06:59 18:59 Other: Date of Last Bowel Movement 06/21/18 06/24/18 Narrative: GENERAL: Well-developed well-nourished -[place] male, no acute distress. Awake and alert. SKIN: Warm and dry. HEAD: Atraumatic. Normocephalic. EYES: Pupils equal and round. No scleral icterus. No injection or drainage. ENT: Nasal mucosal dry, dried blood noted in the nares. No sinus tenderness appreciated. Mucous membranes pink and moist. NECK: Trachea midline. CARDIOVASCULAR: Regular rate and rhythm. RESPIRATORY: No accessory muscle use. Clear to auscultation. Breath sounds equal bilaterally. GASTROINTESTINAL: Abdomen soft, non-tender, nondistended. MUSCULOSKELETAL: Extremities without clubbing, cyanosis, or edema. No obvious deformities. +tenderness to palpation right sided cervical paraspinous muscles. NEUROLOGICAL: Awake and alert. No obvious cranial nerve deficits. Motor grossly within normal limits. Able to move all extremities spontaneously. Normal speech. PSYCHIATRIC: Calm and cooperative. Insight and judgment poor. Results Labs CBC & Chem 7: 06/24/18 14:30 06/20/18 11:00 Assessment and Plan (1) Major depressive disorder, recurrent, severe with psychotic features: Code(s): F33.3 - Major depressive disorder, recurrent, severe with psychotic symptoms Status: Acute (2) Cocaine abuse: Code(s): F14.10 - Cocaine abuse, uncomplicated Status: Acute (3) Alcohol abuse: Code(s): F10.10 - Alcohol abuse, uncomplicated Status: Suspected (4) Suicidal ideation: Code(s): R45.851 - Suicidal ideations Status: Acute Plan 62-year-old male with a past medical history significant for chronic allergies and sinusitis, history of cocaine and alcohol abuse, PTSD, major depressive disorder and anxiety disorder admitted under Case act for suicidal ideation. Hospitalist service is consulted to assist with medical management: Suicidal ideation PTSD Major depressive disorder Anxiety disorder Case act -Management per psychiatric team Chronic nasal congestion/sinusitis Episodes of blood-tinged nasal drainage with early am nose blowing. Hx of snorting cocaine -patient denies actively using however urine drug screen positive for cocaine CBC stable -Trial of Zyrtec -Continue Flonase -Afrin nasal spray times 3 days -Monitor for improvement -avoid blowing nose. Chronic right sided cervical spine pain with RUE radiculopathy -will obtain MR cervical spine for further evaluation -Continue on ibuprofen and Robaxin as needed DVT prophylaxis -Patient is ambulatory Thank you very kindly for this consultation. We will continue to follow patient along with you. Code Status: FULL Discussed Condition With: patient, nursing staff, Dr. Blank Attending Attestation I saw and examined patient together with NAVNEET,I agree with assessment and plan as documented in note.
[2018-06-24] MEDS: OXYMETAZOLINE 0.05% NASAL SCH (21:15)
--- NOTE | 2018-06-25 07:53 | MR ---
EXAM DATE: 06/25/2018 7:46 AM EST AGE/SEX: 62 years / Male INDICATIONS: Extremity numbness. CLINICAL DATA: This is the patient's initial encounter. Patient reports that signs and symptoms have been present for 4 - 6 days and indicates a pain score of 0/10. MEDICAL/SURGICAL HISTORY: None. None. COMPARISON: No prior exams available for comparison. TECHNIQUE: Multiplanar, multisequence MRI examination of the cervical spine was performed without co ntrast. FINDINGS: Vertebrae: Normal vertebral body height. Homogeneous marrow signal. Diffuse disc space narrowing wi th degenerative disc disease at every level extending from C3 C7. Prominent anterior endplate osteoph ytes C3-C7 as well. Alignment: Normal. Cord: Minimal T2 signal in the cord at C4-5 level. Post Fossa: The cerebellar tonsils are normal in position. C2-C3: The thecal sac has a normal configuration. There is no evidence of disc herniation or spinal canal stenosis. The neural foramina are patent bilaterally. C3-C4: Moderate broad-based posterior disc osteophyte complex abuts the ventral thecal sac causing n o significant canal stenosis. Uncovertebral spurring causes moderate to severe bilateral neural robles inal narrowing. C4-C5: Moderate broad-based posterior disc protrusion abuts the ventral thecal sac causing mild bryan l stenosis. Uncovertebral spurring causes moderate to severe bilateral neural foraminal narrowing. C5-C6: Moderate broad-based posterior disc osteophyte complex abuts the ventral thecal sac. No canal stenosis. Uncovertebral spurring causes moderate bilateral neural foraminal narrowing. C6-C7: Small broad-based posterior disc osteophyte complex abuts the ventral thecal sac. No canal st enosis. Uncovertebral spurring causes moderate bilateral neural foraminal narrowing. C7-T1: No epidural impressions seen. CONCLUSION: 1. Posterior disc protrusion causing mild canal stenosis at C4-5. 2. Moderate broad-based posterior disc osteophyte complex at C3-4 and C5-6 levels without canal sten osis. 3. Small broad-based posterior disc osteophyte complex C6-7 without canal stenosis. 4. Uncovertebral spurring causing significant neural foraminal narrowing at multiple levels as above . Electronically signed by: Orlando Panchal MD Board Certified Radiologist 06/25/2018 7:52 AM EST
[2018-06-25] MEDS: LORazepam 1 MG Tablet PO PRN (09:09)
[2018-06-25] MEDS: Famotidine 20 MG Tablet PO SCH ×2 (09:10→21:12)
[2018-06-25] MEDS: Sertraline 100 MG Tablet PO SCH (09:10)
[2018-06-25] MEDS: OXYMETAZOLINE 0.05% NASAL SCH ×2 (09:12→21:09)
[2018-06-25] MEDS: Methocarbamol 500 MG Tablet PO PRN ×2 (10:18→21:11)
--- NOTE | 2018-06-25 15:48 | P.PNIM ---
Subjective Interval history: Follow up on patient with neck pain, nasal congestion. Patient seen and examined. Patient reports improvement in nasal congestion. Continues to have right sided neck and upper extremity pain. DW patient MR findings and recommend follow up as outpatient. Physical Exam Vital signs: Vital Signs 06/24/18 17:41 06/24/18 18:00 06/25/18 06:00 Temperature 97.4 F L 97.4 F L 97.9 F Pulse Rate 77 77 77 Respiratory Rate 18 18 17 Blood Pressure 134/72 134/72 118/61 Pulse Oximetry 97 97 94 L 06/25/18 10:00 Temperature Pulse Rate Respiratory Rate 18 Blood Pressure Pulse Oximetry Intake & Output 06/24/18 06/25/18 06/25/18 18:59 06:59 18:59 Other: Date of Last Bowel Movement 06/24/18 Narrative: GENERAL: Well-developed well-nourished -[place] male, no acute distress. Awake and alert. Witnessed ambulating around the unit without any difficulty. SKIN: Warm and dry. HEENT: Atraumatic. Normocephalic. Pupils equal and round. No scleral icterus. No nasal drainage. Mucous membranes pink and moist. NECK: Trachea midline. CARDIOVASCULAR: Regular rate and rhythm. RESPIRATORY: No accessory muscle use. No respiratory distress appreciated. MUSCULOSKELETAL: Extremities without clubbing, cyanosis, or edema. No obvious deformities. +tenderness to palpation right sided cervical paraspinous muscles. NEUROLOGICAL: Awake and alert. No obvious cranial nerve deficits. Able to move all extremities spontaneously. Normal speech. PSYCHIATRIC: Calm and cooperative. Insight and judgment poor. Results Labs CBC & Chem 7: 06/24/18 14:30 06/20/18 11:00 Imaging Imaging: Impressions Cervical Spine MRI 06/25/18 00:00 CONCLUSION: 1. Posterior disc protrusion causing mild canal stenosis at C4-5. 2. Moderate broad-based posterior disc osteophyte complex at C3-4 and C5-6 levels without canal stenosis. 3. Small broad-based posterior disc osteophyte complex C6-7 without canal stenosis. 4. Uncovertebral spurring causing significant neural foraminal narrowing at multiple levels as above. Assessment and Plan (1) Major depressive disorder, recurrent, severe with psychotic features: Code(s): F33.3 - Major depressive disorder, recurrent, severe with psychotic symptoms Status: Acute (2) Cocaine abuse: Code(s): F14.10 - Cocaine abuse, uncomplicated Status: Acute (3) Alcohol abuse: Code(s): F10.10 - Alcohol abuse, uncomplicated Status: Suspected (4) Suicidal ideation: Code(s): R45.851 - Suicidal ideations Status: Acute Plan 62-year-old male with a past medical history significant for chronic allergies and sinusitis, history of cocaine and alcohol abuse, PTSD, major depressive disorder and anxiety disorder admitted under Case act for suicidal ideation. Hospitalist service is consulted to assist with medical management: Suicidal ideation PTSD Major depressive disorder Anxiety disorder Case act -Management per psychiatric team Chronic nasal congestion/sinusitis Episodes of blood-tinged nasal drainage with early am nose blowing Hx of snorting cocaine -patient denies actively using however urine drug screen positive for cocaine CBC stable -Trial of Zyrtec, continue -Continue Flonase -Afrin nasal spray times 3 days -Monitor for improvement Chronic right sided cervical spine pain with RUE radiculopathy -MR cervical spine shows multilevel degenerative changes t/o the cervical spine with mild canal stenosis at C45 -Continue on ibuprofen and Robaxin as needed -recommend follow up as outpatient DVT prophylaxis -Patient is ambulatory Patient appears stable from hospitalist standpoint. [facility] will sign off. Please reconsult if needed. Code Status: FULL Discussed Condition With: patient, nursing staff, Dr. Blank Progress Note: Quality VTE Deep Vein Thrombosis/Pulmonary Embolism Present on Admission: No
--- NOTE | 2018-06-25 17:36 | P.PNPSY ---
Subjective Chief Complaint: Suicidal thoughts Remarks: Reviewed electronic medical records and discussed case with staff. Follow-up was conducted in the day room with AMOS Bella present. Patient was initially somewhat reluctant to participate in the interview however, he quickly came around. When asked how he is doing he states "about the same". Reports that he did not sleep well but his appetite has been good. When asked to rate his mood he responds "very bad". He claims that he continues to have ongoing suicidal ideation. He is denying any side effects from the medications. His nurse reports had no behaviors today. Mental Status Examination Appearance: Appropriate Consciousness: Alert Orientation: x4 Motor Activity: Normal gait Speech: Unremarkable Language: Adequate Fund of Knowledge: Adequate Attention and Concentration: Easily distracted Memory: Unremarkable Mood: Sad, Anxious, Irritable Affect: Sad, Anxious Thought Process & Associations: Intact, Logical, Goal directed Thought Content: Appropriate Hallucination Type: Auditory (None elicited today but he complained of command hallucinations on admission to the ER) Delusion Type: None Suicidal Ideation: Yes (Passive) Suicidal Plan: No Suicidal Intention: No Homicidal Ideation: No Homicidal Plan: No Homicidal Intention: No Insight: Fair Judgment: Impulsive Assessment and Plan - Assessment (1) Major depressive disorder, recurrent, severe with psychotic features Code(s): F33.3 - Major depressive disorder, recurrent, severe with psychotic symptoms Status: Acute (2) Cocaine abuse Code(s): F14.10 - Cocaine abuse, uncomplicated Status: Acute (3) Alcohol abuse Code(s): F10.10 - Alcohol abuse, uncomplicated Status: Suspected (4) Suicidal ideation Code(s): R45.851 - Suicidal ideations Status: Acute - Plan Plan: Patient will be reevaluated by the attending psychiatrist. Continue with current treatment plan. Justification for Continued Inpatient Stay: Moving this patient to a less restrictive environment would likely result in decompensation.
[2018-06-26] MEDS: Famotidine 20 MG Tablet PO SCH ×2 (09:14→20:40)
[2018-06-26] MEDS: Sertraline 100 MG Tablet PO SCH (09:14)
[2018-06-26] MEDS: OXYMETAZOLINE 0.05% NASAL SCH ×2 (09:14→20:49)
--- NOTE | 2018-06-26 13:16 | P.PNPSY ---
Subjective Chief Complaint: Suicidal thoughts Remarks: Reviewed electronic medical record and discussed with nursing staff. Rounded with AMOS Crook. Patient c/o shoulder pain , currently on Robaxin. He endorses nightmares that keep him awake all night. He states that he is suicidal , but feels safe in the hospital. Eating and sleeping well. No behavioral concerns. Medication compliant with no side effects from the medications. Review of Systems All other systems reviewed negative except as stated in HPI Mental Status Examination Appearance: Appropriate Consciousness: Alert Orientation: x4 Motor Activity: Normal gait Speech: Unremarkable Language: Adequate Fund of Knowledge: Adequate Attention and Concentration: Easily distracted Memory: Unremarkable Mood: Sad, Anxious, Irritable Affect: Sad, Anxious Thought Process & Associations: Intact, Logical, Goal directed Thought Content: Appropriate Hallucination Type: Auditory (None elicited today but he complained of command hallucinations on admission to the ER) Delusion Type: None Suicidal Ideation: Yes (Passive) Suicidal Plan: No Suicidal Intention: No Homicidal Ideation: No Homicidal Plan: No Homicidal Intention: No Insight: Fair Judgment: Impulsive Assessment and Plan - Assessment (1) Major depressive disorder, recurrent, severe with psychotic features Code(s): F33.3 - Major depressive disorder, recurrent, severe with psychotic symptoms Status: Acute (2) Cocaine abuse Code(s): F14.10 - Cocaine abuse, uncomplicated Status: Acute (3) Alcohol abuse Code(s): F10.10 - Alcohol abuse, uncomplicated Status: Suspected (4) Suicidal ideation Code(s): R45.851 - Suicidal ideations Status: Acute - Plan Plan: Patient will be reevaluated by the attending psychiatrist. Continue with current treatment plan. Justification for Continued Inpatient Stay: June 21, 2018. Initial assessment and plan: The patient is a 62-year-old who presents complaining of worsening depression with auditory hallucinations that are commanding him to harm himself. He had just been discharged approximately 12 days prior to this admission but he admits to nonadherence with the discharge medications or discharge treatment plan. He reports severe psychosocial stressors from continued homelessness as well as exacerbations of flashbacks of PTSD triggered a return of suicidal ideations with plan to jump from a bridge. Patient's mental status and mood were likely also affected by his continued cocaine abuse but the patient minimizes this habit and at this time he is declining recommendation for residential treatment for cocaine abuse. The patient's complaints of PTSD from combat in [place] is inconsistent with historical facts and the patient's age but it is possible that he does suffer from PTSD from another traumatic source therefore we will not confront or invalidate his suffering at this time but rather, provide treatments that will benefit his mood and anxiety and psychosis. 1. Continue with admission to inpatient psychiatry at [facility]; convert to voluntary/competent legal status. 2. Routine unit precautions. 3. Comfort medications ordered for as needed treatment of constipation, heartburn, diarrhea, and mild pain. 4. Hydroxyzine 50mg po q6H prn anxiety/insomnia. 5. Restart Seroquel 200 mg every morning and 400 mg at bedtime. 6. Restart Zoloft 100 mg every morning for treatment of anxiety and depression. 7. Restart Flonase 1 puff per nares twice a day. 8. Start famotidine 20 mg twice a day for reflux. 8. Patient will participate in the unit programming to include group therapies , milieu therapy and recreational therapies. 9. Discharge planning: The patient has access to [facility] outpatient as well as inpatient treatments but he has thus far been nonadherent and when approached about the possibility of residential substance use treatment with the [facility] he is currently reporting very little motivation. Patient is homeless which places him at continued risk of relapse on cocaine use therefore efforts will be made by his treatment team to get him into a fdc as well as substance use recovery treatment. Estimated LOS: 7 days June 22, 2018: Fair initial response to treatment, the patient reports feeling safe on the unit and is cooperative with care but he continues to experience command hallucinations with thoughts of harming himself. Continue inpatient psychiatric treatment and stabilization, voluntary status. Continue current medications unchanged as he will require more time on these medications in order to reach a therapeutic response. Discharge planning: The patient's homelessness is a prominent risk factor for his suicidal thoughts and behaviors and will need to be mitigated prior to discharge. Patient does have veterans benefits and the treatment team will try to access care and case management through the [facility] if possible. June 23, 2018: Fair response to treatment, the patient is calm and cooperative and has been able to tolerate being out of his room and interacting with his peers. He is reporting a decreased intensity and frequency of his command hallucinations to harm himself. He is expressing sincere motivation to work on his recovery and adhere to discharge follow-up plans. Continue inpatient psychiatric treatment and stabilization, voluntary status. Continue current medications unchanged as he will require more time on these medications in order to reach a therapeutic response. Discharge planning: The patient is to follow-up early in the morning with the [facility] social services coordinator at the [facility] outpatient [facility] where he will be re-linked with the [facility] program. Anticipate discharge early next week. June 24, 2018: Fair response to treatment as the patient is reporting decreased intensity of his auditory hallucinations and decreased intensity of his suicidal ideations. The patient has recently experienced worsening anxiety and agitation and irritability in response to stressors within the milieu but thus far has responded appropriately. The patient does not feel safe with discharge at this time but is motivated for his long-term recovery and would like to continue his inpatient stabilization. Continue inpatient psychiatric treatment and stabilization, voluntary status. Increase hydroxyzine to 100 mg every 6 hours as needed for anxiety or insomnia. Continue all other medications unchanged allowing for more time to reach therapeutic efficacy. Consult hospitalist due to the patient's continued complaints of sinus irritation and now with epistaxis. Start Robaxin 1000 mg every 8 hours as needed for complaints of muscle spasm pain in the neck and shoulders. Discharge planning: The patient is to follow-up early in the morning with the [facility] social services coordinator at the [facility] outpatient [facility] where he will be re-linked with the [facility] program. Anticipate discharge early next week. June 26, 2018 Patient endorsing nightmares that are keeping him awake. May want to consider Prazosin, but will leave that decision to the attending if they do not resolve. Patient c/o shoulder pain already on Robaxin 100 mg q 8hours. Patient states that he continues to be suicidal and does feel safe in the hospital . Moving patient to a less restrictive environment may result in his decompensation.
[2018-06-27] MEDS: Sertraline 100 MG Tablet PO SCH (08:47)
[2018-06-27] MEDS: Famotidine 20 MG Tablet PO SCH ×2 (08:47→20:43)
[2018-06-27] MEDS: OXYMETAZOLINE 0.05% NASAL SCH (08:48)
[2018-06-27] MEDS: Methocarbamol 500 MG Tablet PO PRN (10:56)
--- NOTE | 2018-06-27 14:06 | P.PNPSY ---
Subjective Chief Complaint: Suicidal thoughts Remarks: Patient seen for follow-up, chart reviewed, patient discussed with nursing staff ; we reviewed the patient's mood, thoughts, and behaviors from overnight and this morning. Nurse reports the patient seemed to rest well through the night but he complains of nightmares and continued suicidal ideations. He is described as needed with multiple somatic complaints. The patient was seen during recreational therapies to be playing checkers with a peer and his behavior was appropriate. Patients affect appeared brighter. Patient did complain of continued auditory hallucinations that seem to be worsening in response to the acuity level on the unit being greater. He also complains of recurrent nightmares and continued intermittent thoughts of ending his life if discharged to the streets. We discussed risk benefits side effects alternatives and he agrees to replace the Seroquel with Risperdal and then try trazodone and prazosin combination for his insomnia with nightmares. Mental Status Examination Appearance: Appropriate Consciousness: Alert Orientation: x4 Motor Activity: Normal gait Speech: Unremarkable Language: Adequate Fund of Knowledge: Adequate Attention and Concentration: Easily distracted Memory: Unremarkable Mood: Sad, Anxious, Irritable Affect: Sad, Anxious Thought Process & Associations: Intact, Logical, Goal directed Thought Content: Appropriate Hallucination Type: Auditory (None elicited today but he complained of command hallucinations on admission to the ER) Delusion Type: None Suicidal Ideation: Yes (Passive) Suicidal Plan: No Suicidal Intention: No Homicidal Ideation: No Homicidal Plan: No Homicidal Intention: No Insight: Fair Judgment: Impulsive Assessment and Plan - Assessment (1) Major depressive disorder, recurrent, severe with psychotic features Code(s): F33.3 - Major depressive disorder, recurrent, severe with psychotic symptoms Status: Acute (2) Cocaine abuse Code(s): F14.10 - Cocaine abuse, uncomplicated Status: Acute (3) Alcohol abuse Code(s): F10.10 - Alcohol abuse, uncomplicated Status: Suspected (4) Suicidal ideation Code(s): R45.851 - Suicidal ideations Status: Acute - Plan Plan: June 27, 2018: Fair response to treatment, the patient's affect seems to be improved and there have been no negativistic behaviors but the patient is reporting an internal struggle with command hallucinations to harm himself and impulses to harm others when feeling threatened. Patient insists that the Seroquel has been ineffective therefore alternatives will be tried. Continue inpatient treatment and stabilization. Stop Seroquel due to inefficacy. Start Risperdal 1 mg every morning and 2 mg at bedtime for treatment of hallucinations. Start trazodone 150 mg at bedtime for treatment of insomnia. Start prazosin 1 mg at bedtime for treatment of nightmares. Discharge planning: The patient has [place] outpatient access and support with the earliest discharge available to ensure safe placement in housing be this Wednesday. Justification for Continued Inpatient Stay: Patient remains an elevated risk for self-harm by self neglect and nonadherence which is recently resulted in relapse and return of command hallucinations to harm himself and therefore will require further inpatient stabilization and preparation of a safe discharge plan. Moving patient to a less restrictive environment at this time may result in decompensation.
[2018-06-27] MEDS: traZODone 100 MG Tablet PO SCH (20:43)
[2018-06-27] MEDS ORDERED: Prazosin HCl 1 MG Capsule PO SCH (21:00)
[2018-06-28] MEDS: Famotidine 20 MG Tablet PO SCH ×2 (08:30→20:25)
[2018-06-28] MEDS: Sertraline 100 MG Tablet PO SCH (08:31)
--- NOTE | 2018-06-28 08:52 | P.TTN ---
- Patient Problems Problems: 1. Discharge planning 2. Medication compliance 3. Knowledge deficit 4. Lack of coping skills - Progress Toward Goals Provider Present: Other Provider Input: 06/28/18 Pts medication was changed yesterday and perhaps pt needs one more day of observation, pt to be possible discharge towards the end of the week. Nurse Input: 06/28/18 Per RN pt has been compliant with medication, pt make his needs known to RN as needed. Psychiatric Counselors Present: Other Psychiatric Therapist Input: 06/28/18 [facility] Group Spec/RT/OT/FLOWERS Present: KRISTIE Gilbert, Other Group Spec/RT/OT/FLOWERS Input: 06/28/18 pt has been attending groups and his behavior is been compliant. - Documentation Teaching Recipient: Patient
--- NOTE | 2018-06-28 12:26 | P.PNPSY ---
Subjective Chief Complaint: Suicidal thoughts Remarks: Patient seen for follow-up, chart reviewed, patient discussed with nursing staff ; we reviewed the patient's mood, thoughts, and behaviors from overnight and this morning. Nurse reports the patient slept 8 hours overnight but complained of restlessness and nightmares. Nursing describes him as med seeking for somatic complaints but his affect has looked better and he has been more involved in the milieu. Patient was seen lying in bed after breakfast but was easy to awaken. The patient insists that he plans on going to groups later today but he is feeling tired from his new medications. Patient continues to complain of intermittent auditory hallucinations with command hallucinations to harm himself but is able to contract for safety on the unit. Patient denies any lightheadedness or dizziness from his first dose of prazosin and is willing to try an increase tonight. Mental Status Examination Appearance: Appropriate Consciousness: Alert Orientation: x4 Motor Activity: Normal gait Speech: Unremarkable Language: Adequate Fund of Knowledge: Adequate Attention and Concentration: Easily distracted Memory: Unremarkable Mood: Sad, Anxious, Irritable Affect: Sad, Anxious Thought Process & Associations: Intact, Logical, Goal directed Thought Content: Appropriate Hallucination Type: Auditory (None elicited today but he complained of command hallucinations on admission to the ER) Delusion Type: None Suicidal Ideation: Yes (Passive) Suicidal Plan: No Suicidal Intention: No Homicidal Ideation: No Homicidal Plan: No Homicidal Intention: No Insight: Fair Judgment: Impulsive Assessment and Plan - Assessment (1) Major depressive disorder, recurrent, severe with psychotic features Code(s): F33.3 - Major depressive disorder, recurrent, severe with psychotic symptoms Status: Acute (2) Cocaine abuse Code(s): F14.10 - Cocaine abuse, uncomplicated Status: Acute (3) Alcohol abuse Code(s): F10.10 - Alcohol abuse, uncomplicated Status: Suspected (4) Suicidal ideation Code(s): R45.851 - Suicidal ideations Status: Acute - Plan Plan: June 27, 2018: Fair response to treatment, the patient's affect seems to be improved and there have been no negativistic behaviors but the patient is reporting an internal struggle with command hallucinations to harm himself and impulses to harm others when feeling threatened. Patient insists that the Seroquel has been ineffective therefore alternatives will be tried. Continue inpatient treatment and stabilization. Stop Seroquel due to inefficacy. Start Risperdal 1 mg every morning and 2 mg at bedtime for treatment of hallucinations. Start trazodone 150 mg at bedtime for treatment of insomnia. Start prazosin 1 mg at bedtime for treatment of nightmares. Discharge planning: The patient has [place] outpatient access and support with the earliest discharge available to ensure safe placement in housing be this Wednesday. June 28, 2018: Fair response to treatment, the patient's behavior is stable and seems to be improving in his ability to tolerate the milieu but he continues to complain of auditory hallucinations and nightmares. Patient is complaining of somnolence from the recent change of medications but is willing to continue with the expectation that the medications will become more tolerable as well as efficacious over the next few days. Continue inpatient treatment and stabilization, medications unchanged except for an increase of prazosin to 3 mg at bedtime for treatment of nightmares Justification for Continued Inpatient Stay: Patient remains an elevated risk for self-harm and harm to others by acting out on command hallucinations and paranoia and therefore he will require further inpatient stabilization and preparation of a safe discharge plan. Moving patient to a less restrictive environment at this time may result in decompensation.
[2018-06-28] MEDS: Methocarbamol 500 MG Tablet PO PRN (18:27)
[2018-06-28] MEDS: traZODone 100 MG Tablet PO SCH (20:25)
[2018-06-28] MEDS ORDERED: Prazosin HCl 1 MG Capsule PO SCH (21:00)
[2018-06-29] MEDS: Famotidine 20 MG Tablet PO SCH ×2 (08:13→20:35)
[2018-06-29] MEDS: Sertraline 100 MG Tablet PO SCH (08:14)
[2018-06-29] MEDS: Methocarbamol 500 MG Tablet PO PRN ×2 (13:04→20:44)
--- NOTE | 2018-06-29 13:31 | P.PNPSY ---
Subjective Chief Complaint: Suicidal thoughts Remarks: Patient seen for follow-up, chart reviewed, patient discussed with nursing staff ; we reviewed the patient's mood, thoughts, and behaviors from overnight and this morning. Nurse reports the patient slept 8 hours overnight and seemed to rest well. He is described as having a positive mood this morning and verbally engaged with staff and peers and polite in his behavior. Patient was seen after lunch to be lying in bed awake. He complains of continued dizziness and mild nausea this morning and he believes its continued side effects from his new medications. He reports that his sleep was improved and his nightmare last night was very mild compared to his usual variances. Patient did go to the 12: 00 psychotherapy group today and reports positive growth and improved confidence in his recovery. 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 Patient expressed appreciation for his inpatient treatment and he expressed concern that if he discharges on Wednesday that he will have missed out on getting more benefits from this inpatient treatment and he will be at risk of relapse. The patient was reassured that we will continue to work day by day to improve his condition and his prognosis for recovery and if he continues to experience side effects from recent medication changes than his discharge will be postponed. Mental Status Examination Appearance: Appropriate Consciousness: Alert Orientation: x4 Motor Activity: Normal gait Speech: Unremarkable Language: Adequate Fund of Knowledge: Adequate Attention and Concentration: Easily distracted Memory: Unremarkable Mood: Anxious Affect: Anxious Thought Process & Associations: Intact, Logical, Goal directed Thought Content: Appropriate Hallucination Type: None Delusion Type: None Suicidal Ideation: Yes (Passive) Suicidal Plan: No Suicidal Intention: No Homicidal Ideation: No Homicidal Plan: No Homicidal Intention: No Insight: Fair Judgment: Impulsive Assessment and Plan - Assessment (1) Major depressive disorder, recurrent, severe with psychotic features Code(s): F33.3 - Major depressive disorder, recurrent, severe with psychotic symptoms Status: Acute (2) Cocaine abuse Code(s): F14.10 - Cocaine abuse, uncomplicated Status: Acute (3) Alcohol abuse Code(s): F10.10 - Alcohol abuse, uncomplicated Status: Suspected (4) Suicidal ideation Code(s): R45.851 - Suicidal ideations Status: Acute - Plan Plan: June 27, 2018: Fair response to treatment, the patient's affect seems to be improved and there have been no negativistic behaviors but the patient is reporting an internal struggle with command hallucinations to harm himself and impulses to harm others when feeling threatened. Patient insists that the Seroquel has been ineffective therefore alternatives will be tried. Continue inpatient treatment and stabilization. Stop Seroquel due to inefficacy. Start Risperdal 1 mg every morning and 2 mg at bedtime for treatment of hallucinations. Start trazodone 150 mg at bedtime for treatment of insomnia. Start prazosin 1 mg at bedtime for treatment of nightmares. Discharge planning: The patient has [facility] outpatient access and support with the earliest discharge available to ensure safe placement in housing be this Wednesday. June 28, 2018: Fair response to treatment, the patient's behavior is stable and seems to be improving in his ability to tolerate the milieu but he continues to complain of auditory hallucinations and nightmares. Patient is complaining of somnolence from the recent change of medications but is willing to continue with the expectation that the medications will become more tolerable as well as efficacious over the next few days. Continue inpatient treatment and stabilization, medications unchanged except for an increase of prazosin to 3 mg at bedtime for treatment of nightmares June 29, 2018: Good response to treatment as the patient is sleeping better and is recurrent auditory hallucinations and nightmares decreased in frequency and intensity but he continues to have passive SI and is fearful of his ability to sustain his recovery progress that he is made on this admission. Patient's medication changes recently have resulted in some side effects that will need to be resolved prior to discharge. Continue inpatient treatment stabilizations, medications unchanged except for further increase of his prazosin to 5 mg at bedtime for treatment of nightmares. Discharge planning: The patient has an outpatient appointment with the [facility] for Wednesday but this may need to be rescheduled if he continues to complain of side effects from current medications. Justification for Continued Inpatient Stay: Patient remains an elevated risk for self-harm by acting out on intermittent command hallucinations to harm himself and will require further inpatient stabilization and preparation of a safe discharge plan. Moving patient to a less restrictive environment at this time may result in decompensation.
[2018-06-29] MEDS: traZODone 100 MG Tablet PO SCH (20:35)
[2018-06-30] MEDS: Famotidine 20 MG Tablet PO SCH ×2 (08:28→21:24)
[2018-06-30] MEDS: Sertraline 100 MG Tablet PO SCH (08:28)
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
[2018-06-30] MEDS: Methocarbamol 500 MG Tablet PO PRN (14:22)
[2018-06-30] MEDS: traZODone 100 MG Tablet PO SCH (21:23)
[2018-06-30] MEDS: Prazosin HCl 1 MG Capsule PO SCH (21:23)
[2018-07-01] MEDS: Methocarbamol 500 MG Tablet PO PRN ×2 (09:43→21:11)
[2018-07-01] MEDS: Famotidine 20 MG Tablet PO SCH ×2 (09:44→21:11)
[2018-07-01] MEDS: Sertraline 100 MG Tablet PO SCH (09:45)
--- NOTE | 2018-07-01 13:42 | P.PNPSY ---
Subjective Chief Complaint: Suicidal thoughts Remarks: Patient seen for follow-up, chart reviewed, patient discussed with nursing staff ; we reviewed the patient's mood, thoughts, and behaviors from overnight and this morning. Nurse reports that patient has been calm and cooperative with care and seem to sleep well through the night. Patient was seen at bedside after breakfast. He reports "I had the best sleep last night and I had a long time." He reports appetite is good again and he denies any headaches or dizziness since the prazosin dose was lowered back to 3 mg at bedtime. He reports continued episodes of auditory hallucinations telling him to hurt himself but they are decreased in frequency and intensity but he does not feel confident with possible discharge today without certainty of a safe place for him to stay. Mental Status Examination Appearance: Appropriate Consciousness: Alert Orientation: x4 Motor Activity: Normal gait Speech: Unremarkable Language: Adequate Fund of Knowledge: Adequate Attention and Concentration: Easily distracted Memory: Unremarkable Mood: Anxious Affect: Anxious Thought Process & Associations: Intact, Logical, Goal directed Thought Content: Appropriate Hallucination Type: None Delusion Type: None Suicidal Ideation: Yes (Passive) Suicidal Plan: No Suicidal Intention: No Homicidal Ideation: No Homicidal Plan: No Homicidal Intention: No Insight: Fair Judgment: Impulsive Assessment and Plan - Assessment (1) Major depressive disorder, recurrent, severe with psychotic features Code(s): F33.3 - Major depressive disorder, recurrent, severe with psychotic symptoms Status: Acute (2) Cocaine abuse Code(s): F14.10 - Cocaine abuse, uncomplicated Status: Acute (3) Alcohol abuse Code(s): F10.10 - Alcohol abuse, uncomplicated Status: Suspected (4) Suicidal ideation Code(s): R45.851 - Suicidal ideations Status: Acute - Plan Plan: June 27, 2018: Fair response to treatment, the patient's affect seems to be improved and there have been no negativistic behaviors but the patient is reporting an internal struggle with command hallucinations to harm himself and impulses to harm others when feeling threatened. Patient insists that the Seroquel has been ineffective therefore alternatives will be tried. Continue inpatient treatment and stabilization. Stop Seroquel due to inefficacy. Start Risperdal 1 mg every morning and 2 mg at bedtime for treatment of hallucinations. Start trazodone 150 mg at bedtime for treatment of insomnia. Start prazosin 1 mg at bedtime for treatment of nightmares. Discharge planning: [facility] with the earliest discharge available to ensure safe placement in housing be this Wednesday. June 28, 2018: Fair response to treatment, the patient's behavior is stable and seems to be improving in his ability to tolerate the milieu but he continues to complain of auditory hallucinations and nightmares. Patient is complaining of somnolence from the recent change of medications but is willing to continue with the expectation that the medications will become more tolerable as well as efficacious over the next few days. Continue inpatient treatment and stabilization, medications unchanged except for an increase of prazosin to 3 mg at bedtime for treatment of nightmares June 29, 2018: Good response to treatment as the patient is sleeping better and is recurrent auditory hallucinations and nightmares decreased in frequency and intensity but he continues to have passive SI and is fearful of his ability to sustain his recovery progress that he is made on this admission. Patient's medication changes recently have resulted in some side effects that will need to be resolved prior to discharge. Continue inpatient treatment stabilizations, medications unchanged except for further increase of his prazosin to 5 mg at bedtime for treatment of nightmares. Discharge planning: [facility] but this may need to be rescheduled if he continues to complain of side effects from current medications. June 30, 2018: Good response to treatment and the patient continues to progress emotionally with his involvement in group therapy as well as supportive therapy from staff. He also seems to be having a good response to current medication regimen but the recent increase of prazosin was likely the cause of today's complaints of lightheadedness and shortness of breath. The patient remains reluctant to discharge despite the positive support coming from the [facility], but since he is continuing to make progress with his inpatient treatment plan he will be continued on inpatient to further improve his prognosis for sustained recovery. Continue inpatient treatment and stabilization. Continue current medications except for a decrease of prazosin back to 3 mg at bedtime for nightmares. Discharge planning: The [facility] but this may need to be rescheduled if he continues to complain of side effects from current medications. July 01, 2018: Good response to treatment as the patient continues to report improvements in his symptoms of anxiety and depression as manifested by restful sleep without nightmares and decreased frequency or intensity of auditory hallucinations. The patient remains high risk for relapse of drug use and a return of command hallucinations to harm self and others therefore he will require continued inpatient stabilization as we work with the [facility] to secure a safe discharge. Continue current treatments unchanged. Justification for Continued Inpatient Stay: Patient remains an elevated risk for self-harm by relapse of drug abuse and a return of command hallucinations to harm self and others and will require further inpatient stabilization and preparation of a safe discharge plan. Moving patient to a less restrictive environment at this time may result in decompensation.
[2018-07-01] MEDS: LORazepam 1 MG Tablet PO PRN (18:18)
[2018-07-01] MEDS: Prazosin HCl 1 MG Capsule PO SCH (21:10)
[2018-07-01] MEDS: traZODone 100 MG Tablet PO SCH (21:11)
[2018-07-02] MEDS: Famotidine 20 MG Tablet PO SCH ×2 (08:12→20:31)
[2018-07-02] MEDS: Sertraline 100 MG Tablet PO SCH (08:12)
--- NOTE | 2018-07-02 15:02 | P.PNPSY ---
Subjective Chief Complaint: Suicidal thoughts Remarks: Patient seen for follow-up, chart reviewed, patient discussed with nursing staff ; we reviewed the patient's mood, thoughts, and behaviors from overnight and this morning. Nurse reports that patient slept well overnight and he remains calm and cooperative with care and affect seems brighter. Patient was seen sitting in the day room conversing with other patients which is a change for him. He denies any active auditory or visual hallucinations denies any suicidal or homicidal ideations. He expressed positive response to his attendance at [facility]. He is hopeful for discharge to the [place] homeless program early next week. Mental Status Examination Appearance: Appropriate Consciousness: Alert Orientation: x4 Motor Activity: Normal gait Speech: Unremarkable Language: Adequate Fund of Knowledge: Adequate Attention and Concentration: Easily distracted Memory: Unremarkable Mood: Anxious Affect: Anxious Thought Process & Associations: Intact, Logical, Goal directed Thought Content: Appropriate Hallucination Type: None Delusion Type: None Suicidal Ideation: Yes (Passive) Suicidal Plan: No Suicidal Intention: No Homicidal Ideation: No Homicidal Plan: No Homicidal Intention: No Insight: Fair Judgment: Impulsive Assessment and Plan - Assessment (1) Major depressive disorder, recurrent, severe with psychotic features Code(s): F33.3 - Major depressive disorder, recurrent, severe with psychotic symptoms Status: Acute (2) Cocaine abuse Code(s): F14.10 - Cocaine abuse, uncomplicated Status: Acute (3) Alcohol abuse Code(s): F10.10 - Alcohol abuse, uncomplicated Status: Suspected (4) Suicidal ideation Code(s): R45.851 - Suicidal ideations Status: Acute - Plan Plan: June 27, 2018: Fair response to treatment, the patient's affect seems to be improved and there have been no negativistic behaviors but the patient is reporting an internal struggle with command hallucinations to harm himself and impulses to harm others when feeling threatened. Patient insists that the Seroquel has been ineffective therefore alternatives will be tried. Continue inpatient treatment and stabilization. Stop Seroquel due to inefficacy. Start Risperdal 1 mg every morning and 2 mg at bedtime for treatment of hallucinations. Start trazodone 150 mg at bedtime for treatment of insomnia. Start prazosin 1 mg at bedtime for treatment of nightmares. Discharge planning: The patient has [facility] outpatient access and support with the earliest discharge available to ensure safe placement in housing be this Wednesday. June 28, 2018: Fair response to treatment, the patient's behavior is stable and seems to be improving in his ability to tolerate the milieu but he continues to complain of auditory hallucinations and nightmares. Patient is complaining of somnolence from the recent change of medications but is willing to continue with the expectation that the medications will become more tolerable as well as efficacious over the next few days. Continue inpatient treatment and stabilization, medications unchanged except for an increase of prazosin to 3 mg at bedtime for treatment of nightmares June 29, 2018: Good response to treatment as the patient is sleeping better and is recurrent auditory hallucinations and nightmares decreased in frequency and intensity but he continues to have passive SI and is fearful of his ability to sustain his recovery progress that he is made on this admission. Patient's medication changes recently have resulted in some side effects that will need to be resolved prior to discharge. Continue inpatient treatment stabilizations, medications unchanged except for further increase of his prazosin to 5 mg at bedtime for treatment of nightmares. Discharge planning: The patient has an outpatient appointment with the [facility] for Wednesday but this may need to be rescheduled if he continues to complain of side effects from current medications. June 30, 2018: Good response to treatment and the patient continues to progress emotionally with his involvement in group therapy as well as supportive therapy from staff. He also seems to be having a good response to current medication regimen but the recent increase of prazosin was likely the cause of today's complaints of lightheadedness and shortness of breath. The patient remains reluctant to discharge despite the [facility], but since he is continuing to make progress with his inpatient treatment plan he will be continued on inpatient to further improve his prognosis for sustained recovery. Continue inpatient treatment and stabilization. Continue current medications except for a decrease of prazosin back to 3 mg at bedtime for nightmares. Discharge planning: The patient has an outpatient appointment with the [facility] for Wednesday but this may need to be rescheduled if he continues to complain of side effects from current medications. July 01, 2018: Good response to treatment as the patient continues to report improvements in his symptoms of anxiety and depression as manifested by restful sleep without nightmares and decreased frequency or intensity of auditory hallucinations. The patient remains high risk for relapse of drug use and a return of command hallucinations to harm self and others therefore he will require continued inpatient stabilization as we [facility] with [facility] to [facility] a [facility] discharge. Continue current treatments unchanged. July 02, 2018: Continued good response to treatment and the patient seems to improve a little bit each day. He remains a high risk for relapse and return to a homeless situation therefore our plan is to continue inpatient stabilization and [facility] as well as home with services. Justification for Continued Inpatient Stay: Patient remains an elevated risk for self-harm by relapse of drug use and return of command hallucinations to harm self and will require further inpatient stabilization and preparation of a safe discharge plan. Moving patient to a less restrictive environment at this time may result in decompensation.
[2018-07-02] MEDS: Methocarbamol 500 MG Tablet PO PRN (19:18)
[2018-07-02] MEDS: traZODone 100 MG Tablet PO SCH (20:30)
[2018-07-02] MEDS: Prazosin HCl 1 MG Capsule PO SCH (20:30)
[2018-07-03] MEDS: Sertraline 100 MG Tablet PO SCH (08:21)
[2018-07-03] MEDS: Famotidine 20 MG Tablet PO SCH ×2 (08:21→20:23)
[2018-07-03] MEDS ORDERED: Petrolatum,White 4 GM STICK TOPICAL SCH (09:00)
--- NOTE | 2018-07-03 15:31 | P.PNPSY ---
Subjective Chief Complaint: Suicidal thoughts Remarks: Patient seen for follow-up, chart reviewed, patient discussed with nursing staff ; we reviewed the patient's mood, thoughts, and behaviors from overnight and this morning. Nurse reports patient slept 7 hours overnight. He remains calm and cooperative with peers and staff. Patient is denying any suicidal ideations. He is denying any auditory hallucinations. Mental Status Examination Appearance: Appropriate Consciousness: Alert Orientation: x4 Motor Activity: Normal gait Speech: Unremarkable Language: Adequate Fund of Knowledge: Adequate Attention and Concentration: Easily distracted Memory: Unremarkable Mood: Anxious Affect: Anxious Thought Process & Associations: Intact, Logical, Goal directed Thought Content: Appropriate Hallucination Type: None Delusion Type: None Suicidal Ideation: No (Passive) Suicidal Plan: No Suicidal Intention: No Homicidal Ideation: No Homicidal Plan: No Homicidal Intention: No Insight: Fair Judgment: Impulsive Assessment and Plan - Assessment (1) Major depressive disorder, recurrent, severe with psychotic features Code(s): F33.3 - Major depressive disorder, recurrent, severe with psychotic symptoms Status: Acute (2) Cocaine abuse Code(s): F14.10 - Cocaine abuse, uncomplicated Status: Acute (3) Alcohol abuse Code(s): F10.10 - Alcohol abuse, uncomplicated Status: Suspected (4) Suicidal ideation Code(s): R45.851 - Suicidal ideations Status: Acute - Plan Plan: July 03, 2018: Continued good response to treatment and the patient seems to improve a little bit each day. He remains a high risk for relapse and return to a homeless situation therefore our plan is to continue inpatient stabilization and [facility] as well as home with services. Justification for Continued Inpatient Stay: Patient remains an elevated risk for self-harm by acting out on command hallucinations and will require further inpatient stabilization and preparation of a safe discharge plan. Moving patient to a less restrictive environment at this time may result in decompensation.
[2018-07-03 16:10] VITALS: RESP 16
[2018-07-03] MEDS: Prazosin HCl 1 MG Capsule PO SCH (20:22)
[2018-07-03] MEDS: traZODone 100 MG Tablet PO SCH (20:23)
[2018-07-04 06:24] VITALS: BP 124/78; PULSE 92; TEMP 98.2; O2SAT 100
[2018-07-04] MEDS: Sertraline 100 MG Tablet PO SCH (08:41)
[2018-07-04] MEDS: Famotidine 20 MG Tablet PO SCH (08:41)
--- NOTE | 2018-07-04 12:26 | P.DSPSY ---
Psychiatry Discharge Summary Inpatient Psychiatric care?: Yes Advance Directives: No Mental Health Advance Directive: No Health Care Proxy: No - Admission Admission Date: June 20, 2018 18:43 - Admission Diagnosis (1) Major depressive disorder, recurrent, severe with psychotic features Code(s): F33.3 - Major depressive disorder, recurrent, severe with psychotic symptoms (2) Cocaine abuse Code(s): F14.10 - Cocaine abuse, uncomplicated (3) Alcohol abuse Code(s): F10.10 - Alcohol abuse, uncomplicated Brief History: Patient is a 62 years old -[place] male and is well-known to this to this ED and he was recently treated inpatient in May 2018. The patient was brought to this ED by law enforcement officers after patient reported suicidal thoughts and making threats to jump off a bridge or to shoot himself with a gun. The patient was assessed in his room and he appears anxious and depressed. Patient speech is fluent and rational unable to give a clear and accurate account of recent events leading up to him being Case acted by the police. He reported frequent traumatic flashback memories of the [place] that triggers suicidal thoughts. He admits to be drinking alcohol, snorting cocaine and smoking marijuana frequently and that he stopped taking his psychotropic medication about 3 weeks ago. Patient admits to auditory hallucinations and he has a history of poor compliance with medications. The patient is advocating inpatient stabilization of his psychotic and PTSD states. Patient denies chest pain or any somatic symptoms. He emphasized that he cannot trust himself with these suicidal thoughts and traumatic flashback memories. Patient was seen at bedside on the psychiatric unit this morning where he was still asleep after waking up briefly for breakfast. The patient complains of fatigue and somnolence as well as severe depressive mood but denies active suicidal thoughts or plans at this time. He admits to nonadherence with discharge medications and discharge follow-up plans from previous admission and he attributes it to worsening flashbacks from combat trauma from [place]. The patient's date in 6 would indicate that he is too young to have served in the [place] conflict but this inconsistency will be challenged at a later date. The patient's presentation of worsening depression fatigue and anhedonia and auditory hallucinations telling to hurt himself are most consistent with recurrence of his depression in the context of continued cocaine abuse. Patient had done well on previous inpatient treatments after discussion of risk benefits side effects alternatives he chooses to restart his previous psychotropics. Past psychiatric history: Past Diagnoses: The patient cannot recall past diagnoses Hospitalizations: Patient was discharged from [facility] on 10 June 2018. The patient reports he was hospitalized at [facility] 4 years ago after a suicide attempt. Suicidal behavior: Patient admits that he tried to stab himself 4 years ago and suicide attempt Past psychotropic medication trials: Patient can only recall treatment with Seroquel 100 mg at bedtime but reports that that dose was inadequate to help him sleep or to control his voices. During his admission last month the patient was restarted on Seroquel and the dose titrated up to 200 mg in the morning and 400 mg at bedtime with good effect. He was also started on Zoloft and titrate up to 100 mg a day for treatment of anxiety and depression. Outpatient treatment: Patient reports that he was followed by the [facility] outpatient clinic approximately 4 years ago but has not been back for 3 years. 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 Family psychiatric history: Denies Psychosocial history: Patient was born and raised locally and graduated high school but no college. He reports joining the [employer] after high school and served 3 years then got out with an honorable discharge. 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 Patient reports he was and x1 and has 4 children oldest being 30 years of age and the youngest being 3 years of age. His 3-year-old was with an ex-girlfriend who he has not been worse for the last 3 years and he has not seen his son since the son was 8 months old. Patient admits that he has been "hunting for them" but has not been able to find them. Patient reports that he has been homeless since his discharge earlier this month. Substance Use history: Tobacco use: Patient is a former smoker but none in the last few years Alcohol use: Patient denies regular alcohol use and none in the last few years Cannabis use: Denies Stimulant use: The patient denies regular use of cocaine but admits to using for the first time in over 8 months just days before his previous admission and now presents with a urine drug screen positive for cocaine again. Opiate use: Denies Prescription drug abuse: Denies Tobacco Use In Past 30 Days: Yes How Often Do You Have a Drink Containing Alcohol: Monthly or less Hospital Course: Hospital course: Patient was admitted to a locked, inpatient psychiatric unit. Appropriate precautions were in place throughout patient's hospital stay. Patient was seen and examined on the unit by psychiatry and also visited by counselor. Psychotropic medications were adjusted based on clinical indications and remained well tolerated. There was a good response to inpatient treatment plan noted by nursing and provider observations, and the patient reported improvements in mood, anxiety, and there was no evidence of any hallucinations, delusions, suicidality or homicidality at time of discharge. Psychiatric follow-up as arranged by counselor. Patient is also to follow up with primary care. I have counseled the patient to abstain from substances of abuse including cannabis and have counseled patient to return to the psychiatric emergency room for any concerning symptoms as part of a general safety plan. Weighing the acute, chronic, and protective factors and based on the available evidence, I immigration judge that the patient does not presently meet criteria for involuntary psychiatric hospitalization. Suicide risk assessment on day of discharge suggest lower than imminent risk from mental illness. Patient is denying suicidal ideation. 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 We will bolster protective factors by relinking the patient with outpatient psychiatric services. There is no evidence of self-care deficit at time of discharge. There is no evidence to support an involuntary hospitalization therefore discharge order placed per patient's request. Patient has maximized benefit from this inpatient psychiatric hospital stay. Discharge medications include prescriptions for Atarax 50 mg take 1-2 tablets by mouth every 8 hours as needed for anxiety #30 refill 0, prazosin 3 mg at bedtime for nightmares #30 refill 0, Risperdal 3 mg at bedtime #30 refill 0, Zoloft 100 mg/day #30 refill 0, trazodone 150 mg at bedtime #30 refill 0. - Discharge Discharge Date: 07/04/18 Discharge Disposition: Retirement - Discharge Instructions Discharge Diet: Regular Diet - Discharge Time > 30 minutes Mental Status Examination Appearance: Appropriate Consciousness: Alert Orientation: x4 Motor Activity: Normal gait Speech: Unremarkable Language: Adequate Fund of Knowledge: Adequate Attention and Concentration: Easily distracted Memory: Unremarkable Mood: Anxious Affect: Anxious Thought Process & Associations: Intact, Logical, Goal directed Thought Content: Appropriate Hallucination Type: None Delusion Type: None Suicidal Ideation: No Suicidal Plan: No Suicidal Intention: No Homicidal Ideation: No Homicidal Plan: No Homicidal Intention: No Insight: Fair Judgment: Impulsive Discharge/Advance Care Plan - Results Vital Signs: Last Vital Signs Temp 98.2 F 07/04/18 06:23 Pulse 92 H 07/04/18 06:23 Resp 16 07/04/18 06:23 BP 124/78 07/04/18 06:23 Pulse Ox 100 07/04/18 06:23 Lab Results: Laboratory Results TSH 0.715 uIU/mL (0.358-3.740) 06/20/18 11:00 Summary of Procedures: None ordered Imaging: ITS Impressions Cervical Spine MRI 06/25/18 00:00 CONCLUSION: 1. Posterior disc protrusion causing mild canal stenosis at C4-5. 2. Moderate broad-based posterior disc osteophyte complex at C3-4 and C5-6 levels without canal stenosis. 3. Small broad-based posterior disc osteophyte complex C6-7 without canal stenosis. 4. Uncovertebral spurring causing significant neural foraminal narrowing at multiple levels as above. Pending Results: None - Medications Number of antipsychotic medications at discharge: 1 - Discharge Care Plan Goals to Promote Your Health: * To prevent worsening of your condition and complications * To maintain your health at the optimal level Directions to Meet Your Goals: Take your medications as prescribed Follow your dietary instruction Follow activity as directed Keep your appointments as scheduled Take your immunizations and boosters as scheduled If your symptoms worsen call your PCP, if no PCP go to Urgent Care Center or Emergency Room For 30/11 questions related to your inpatient stay or results of tests pending at discharge, please contact Dr. Kevin Spence MD at Smoking is Dangerous to Your Health. Avoid second hand smoking
== END 2018-07-04 11:30 | disposition home or self-care (01) | DRG 885 ==
LOC: NEPJ 10:20 → NEDA 18:43 → H270 20:45
PROVIDERS: ADMIT Psychiatry & Neurology Psychiatry; ATTEND Psychiatry & Neurology Psychiatry
DX: F14.10 Cocaine abuse, uncomplicated; F12.90 Cannabis use, unspecified, uncomplicated; F33.3 Major depressive disorder, recurrent, severe with psychotic symptoms; R09.81 Nasal congestion; F10.10 Alcohol abuse, uncomplicated; Y90.3 Blood alcohol level of 60-79 mg/100 ml; Z59.0 Homelessness; F43.10 Post-traumatic stress disorder, unspecified; Z87.891 Personal history of nicotine dependence; M50.20 Other cervical disc displacement, unspecified cervical region; R45.851 Suicidal ideations; Z91.14 Patient's other noncompliance with medication regimen